=== PATIENT | female | born 1940 | race Caucasian/White ===

== ENCOUNTER → 2016-02-19 | Outpatient (CLI) | payer BC ==
[~2016-02-19] MED LIST: ANT25 PO; ASPEC81 PO; BENZ-57 PO; CITA40TA12 PO; FURO20TA PO; LISI-792 PO; LPT40 PO; MULTTAB PO; NTRSLP4 SL; ONDA4TAB10 SL; PLV75 PO; SALI0.6510; TPRSR50 PO
[2016-02-19 11:23] LABS: ALT/SGPT 30 U/L (12-78); AST/SGOT 23 U/L (15-37); CHOLESTEROL 156 mg/dl (0-200); CHOLESTEROL/HDL RATIO 2.9; HDL CHOLESTEROL 53 mg/dl; TRIGLYCERIDES 111 mg/dl (0-150); VERY LOW DENSITY LIPOPROT CALC 22 mg/dl
== END | disposition home or self-care (01) ==
LOC: C.LAB1850 09:53
PROVIDERS: ATTEND Internal Medicine
DX: I25.10 Atherosclerotic heart disease of native coronary artery without angina pectoris (principal)

== ENCOUNTER → 2016-03-02 | Outpatient (CLI) | payer BC | END | disposition home or self-care (01) | LOC: C.LAB1850 09:22 | PROVIDERS: ATTEND Internal Medicine | DX: Z00.00 Encounter for general adult medical examination without abnormal findings (principal); E78.5 Hyperlipidemia, unspecified ==

== ENCOUNTER 2016-03-13 03:37 | Emergency (ER) | payer BC ==
[~2016-03-13] VITALS: Ht 149.9 cm; Wt 72.7 kg
[~2016-03-13 03:37] MED LIST changes: -ANT25 PO; -BENZ-57 PO; -FURO20TA PO; -ONDA4TAB10 SL
[2016-03-13 03:42] VITALS: TEMP 36.6; Ht 149.9 cm; Wt 72.7 kg
[2016-03-13] MEDS ORDERED: MECLIZINE HCL 25 MG TAB PO STA (03:52)
[2016-03-13] MEDS ORDERED: SODIUM CHLORIDE 0.9% 500ML 500 ML IV STA (03:52)
[2016-03-13] MEDS ORDERED: LORAZEPAM 2 MG/ML 1 ML VIAL IV STA ×2 (03:52→04:54)
[2016-03-13 04:18] LABS: BASO % 0.4 %; BASO ABS # 0.03 K/uL (0-0.2); COMPLETE YES; HEMATOCRIT 38.9 % (37-47); IG% 0.5 %; LYMPH % 36.7 %; LYMPH ABS # 3.07 K/uL (1.2-3.4); MEAN CELL VOLUME 95.3 fL (80-100); MEAN CORPUSCULAR HEMOGLOBIN 32.4 pg (25-34); MEAN CORPUSCULAR HGB CONC 33.9 g/dl (32-36); MEAN PLATELET VOLUME 9.8 fL (7.4-10.4); MONO % 5.7 %; NEUT % 54.7 %; PLATELET COUNT 251 K/uL (130-400); RED BLOOD COUNT 4.08 M/uL (4.2-5.4); WHITE BLOOD COUNT 8.37 K/uL (4.8-10.8)
[2016-03-13] MEDS ORDERED: ONDANSETRON INJ 2 MG/ML 2 ML VIAL IV STA (04:20)
[2016-03-13 04:41] LABS: BLOOD UREA NITROGEN 26 mg/dl (7-18); BUN/CREATININE RATIO 21.4 (10-20); CALCIUM 9.8 mg/dl (8.5-10.1); CARBON DIOXIDE 25 mmol/L (21-32); CHLORIDE 106 mmol/L (98-107); GLUCOSE 120 mg/dl (70-99); SODIUM 141 mmol/L (136-145)
[2016-03-13] MEDS ORDERED: BENZ-57 PO (05:59)
[2016-03-13] MEDS ORDERED: FURO20TA PO (06:00)
[2016-03-13] MEDS ORDERED: ONDA4TAB10 SL (06:34)
[2016-03-13] MEDS ORDERED: ANT25 PO (06:34)
--- NOTE | 2016-03-13 06:34 | EMERGENCY ROOM VISIT NOTE ---
History Report prepared by Caro: Shraddha Benz Under the Supervision of: Dr. Yeison Perkins M.D. First contact with patient: 03:45 Chief Complaint: DIZZY Stated Complaint: DIZZY,NAUSEOUS Nursing Triage Summary: pt states she woke around 0300 and was really dizzy and very nauseated, states she has had vertigo before History of Present Illness The patient is a 75 year old female who presents to the Emergency Room via family with complaints of an episode of dizziness that started 50 minutes ago. Per patient, she woke up to go to the bathroom. On her way to the bathroom, the patient started to feel as if the room was spinning. She then became nauseated and vomited. The patient notes that she has a history of vertigo. The patient denies headaches, weakness in her arms or legs. The patient is on blood thinners. She is concerned that this episode of dizziness may be due to her cardiac history. The patient has a history of heart attack and has a stent in place. Source of History: patient Onset: 50 minutes ago Position: other (global) Quality: other (dizziness ) Timing: other (episode ) Associated Symptoms: + nausea, + vomiting, No headache, No weakness Review of Systems See HPI for pertinent positives & negatives. A total of 10 systems reviewed and were otherwise negative. Past Medical & Surgical Medical Problems: (1) Coronary artery disease (2) HTN (hypertension) Family History Blood clots Cancer Diabetes mellitus Hypertension Social History Smoking Status: Never Smoker Alcohol Use: none Drug Use: none Marital Status: Occupation Status: retired Current/Historical Medications Scheduled Aspirin (Aspirin EC Low Dose), 81 MG PO QAM Citalopram Hydrobromide (Celexa), 40 MG PO DAILY Clopidogrel Bisulfate (Clopidogrel), 75 MG PO QAM Lisinopril (Zestril), 20 MG PO DAILY Metoprolol Succinate (Metoprolol Succinate ER), 50 MG PO QAM Multivitamins/Minerals (Mvi With Minerals), 1 TABLET PO DAILY Ondasetron Odt (Zofran Odt), 4 MG SL Q6H Scheduled PRN Benzonatate (Tessalon Perles), 200 MG PO TID PRN for Cough Furosemide (Lasix), 20 MG PO DAILY PRN for SWELLING Meclizine HCl (Meclizine HCl), 1 TAB PO TID PRN for Dizziness or Vertigo Nitroglycerin (Nitrostat), 0.4 MG SL UD PRN for Chest Pain Saline (Goldstream Nasal Fenton), 2 SPRAYS NA Q1H PRN for nasal irritation Allergies Coded Allergies: Diazepam (Verified Allergy, Intermediate, rash, 03/13/16) Lorazepam (Verified Allergy, Intermediate, tongue swelling, 03/13/16) Red Dye (Verified Allergy, Intermediate, rash, 03/13/16) Sulfa Antibiotics (Verified Allergy, Intermediate, rash, 03/13/16) Bacitracin (Verified Allergy, Unknown, unkn, 03/13/16) Neomycin (Verified Allergy, Unknown, unkn, 03/13/16) Polymyxin B (Verified Allergy, Unknown, unkn, 03/13/16) Physical Exam Vital Signs Date Time Temp Pulse Resp B/P Pulse Ox O2 Delivery O2 Flow Rate FiO2 03/13/16 06:56 63 16 106/72 95 03/13/16 05:35 66 14 117/63 96 Room Air 03/13/16 04:14 67 03/13/16 03:42 36.6 75 18 163/76 99 Room Air Physical Exam GENERAL: Patient is in moderate distress, nauseous appearing and dry heaving. HEENT: No acute trauma, normocephalic atraumatic, mucous membranes moist, no nasal congestion, no scleral icterus. She has horizontal nystagmus. NECK: No stridor, no adenopathy, no meningismus, trachea is midline. LUNGS: No dyspnea. Clear to auscultation and equal bilaterally. No wheeze, no rhonchi. HEART: Regular rate and rhythm. No murmurs, rubs, gallops appreciated. ABDOMEN: Soft, nontender, bowel sounds positive, no masses appreciated, no peritonitis. BACK: No midline tenderness, no CVA tenderness EXTREMITIES: Normal motion all extremities, no cyanosis, no edema. NEUROLOGIC: Alert and oriented, no acute motor or sensory deficits, no focal weakness, cranial nerves grossly intact. SKIN: No rash, no jaundice, no diaphoresis. Medical Decision & Procedures Laboratory Results 03/13/16 04:05 Red Blood Count 4.08, Mean Corpuscular Volume 95.3, Mean Corpuscular Hemoglobin 32.4, Mean Corpuscular Hemoglobin Concent 33.9, Mean Platelet Volume 9.8, Neutrophils (%) (Auto) 54.7, Lymphocytes (%) (Auto) 36.7, Monocytes (%) (Auto) 5.7, Eosinophils (%) (Auto) 2.0, Basophils (%) (Auto) 0.4, Neutrophils # (Auto) 4.58, Lymphocytes # (Auto) 3.07, Monocytes # (Auto) 0.48, Eosinophils # (Auto) 0.17, Basophils # (Auto) 0.03 03/13/16 04:05 Test 03/13/16 04:05 White Blood Count 8.37 K/uL (4.8-10.8) Red Blood Count 4.08 M/uL (4.2-5.4) Hemoglobin 13.2 g/dL (12.0-16.0) Hematocrit 38.9 % (37-47) Mean Corpuscular Volume 95.3 fL (80-100) Mean Corpuscular Hemoglobin 32.4 pg (25-34) Mean Corpuscular Hemoglobin Concent 33.9 g/dl (32-36) Platelet Count 251 K/uL (130-400) Mean Platelet Volume 9.8 fL (7.4-10.4) Neutrophils (%) (Auto) 54.7 % Lymphocytes (%) (Auto) 36.7 % Monocytes (%) (Auto) 5.7 % Eosinophils (%) (Auto) 2.0 % Basophils (%) (Auto) 0.4 % Neutrophils # (Auto) 4.58 K/uL (1.4-6.5) Lymphocytes # (Auto) 3.07 K/uL (1.2-3.4) Monocytes # (Auto) 0.48 K/uL (0.11-0.59) Eosinophils # (Auto) 0.17 K/uL (0-0.5) Basophils # (Auto) 0.03 K/uL (0-0.2) RDW Standard Deviation 45.3 fL (36.4-46.3) RDW Coefficient of Variation 13.0 % (11.5-14.5) Immature Granulocyte % (Auto) 0.5 % Immature Granulocyte # (Auto) 0.04 K/uL (0.00-0.02) Anion Gap 10.0 mmol/L (3-11) Est Creatinine Clear Calc Drug Dose 35.2 ml/min Estimated GFR () 51.2 Estimated GFR (Non- 44.2 BUN/Creatinine Ratio 21.4 (10-20) Calcium Level 9.8 mg/dl (8.5-10.1) Troponin I < 0.015 ng/ml (0-0.045) Laboratory results as reviewed by me. Medications Administered Medications (Trade) Dose Ordered Sig/Laith Route Start Time Stop Time Status Last Admin Dose Admin Lorazepam 0.5 mg 0.5 mg NOW STAT IV 03/13/16 03:52 03/13/16 03:53 DC 03/13/16 04:05 0.5 MG Sodium Chloride (Nss 500ml) 500 ml @ 999 mls/hr Q31M STAT IV 03/13/16 03:52 03/13/16 04:22 DC 03/13/16 04:05 999 MLS/HR Meclizine HCl (Antivert Tab) 25 mg NOW STAT PO 03/13/16 03:52 03/13/16 03:53 DC 03/13/16 04:05 25 MG Ondansetron HCl (Zofran Inj) 4 mg NOW STAT IV 03/13/16 04:20 03/13/16 04:21 DC 03/13/16 04:33 4 MG Lorazepam (Ativan Inj) 0.5 mg NOW STAT IV 03/13/16 04:54 03/13/16 04:55 DC 03/13/16 04:54 0.5 MG ECG Indication: other (dizziness) Rate (beats per minute): 70 Rhythm: normal sinus Findings: no acute ischemic change, no ectopy ED Course 0350: The patient was evaluated in room B3. A complete history and physical exam was performed. 0352: Antivert Tab 25 mg PO, Sodium Chloride 500 ml @ 999 mls/hr IV, Ativan 0.5 mg IV 0415: I reevaluated the patient; her vertigo is gone. She states she is still nauseous. 0420: Zofran 4 mg IV 0453: I reevaluated the patient; she states that she feels much better, however she would like some Ativan as she still feels somewhat anxious. 0454: Ativan 0.5 mg IV 0628: Reevaluated the patient; she feels much better. Discussed results and discharge instructions: She verbalized understanding and agreement. The patient is ready for discharge. 0645: Zofran 4 mg 1 homepack PO, Antivert 25 mg 1 homepack PO Medical Decision Differential: Gastroenteritis, Food Borne, Esophageal Perforation, , Electrolyte Abnormality, Dehydration, Intraabdominal Infection, UTI/ Pyelonephritis, Bowel Obstruction, Biliary Pathology, amongst other pathology entertained. Pleasant 75 yr old female with nausea/vomiting illness arrives with acute vertigo. She has long history of vertigo and this is similar. She has no neuro deficits nor headache and with horizontal nystagmus, her known vertiginous history, and aversion to MRI, seems that doing stroke rule out is not indicated at this time. She furthermore is feeling vastly improved with above. Given small dose ativan initially as possible allergy but she did fine with it and thus given second .5 mg. Feeling well, received fluids and in no distress. Labs unremarkable, EKG unremarkable, and patient breathing comfortable. Abdomen is soft nontender and nonsurgical. She wishes to go home and see how she does there. Aware that they can return at any time if worsening or other concerns. Impression Primary Impression: Vertigo Additional Impression: Nausea & vomiting Scribe Attestation The scribe's documentation has been prepared under my direction and personally reviewed by me in its entirety. I confirm that the note above accurately reflects all work, treatment, procedures, and medical decision making performed by me. Departure Information Dispostion Home / Self-Care Prescriptions Meclizine HCl (Meclizine HCl) 25 Mg Tab 1 TAB PO TID Y for Dizziness or Vertigo, #20 TAB Prov: Yeison Perkins M.D. 03/13/16 Ondasetron Odt (ZOFRAN ODT) 4 Mg Tab 4 MG SL Q6H for Nausea, #20 TAB Prov: Yeison Perkins M.D. 03/13/16 Referrals Osman Hendrix M.D. (PCP) Patient Instructions ED Vertigo Unspecified, My [facility] Health Problem Qualifiers Additional Impression: Nausea & vomiting Vomiting type: unspecified Vomiting Intractability: non-intractable Qualified Codes: R11.2 - Nausea with vomiting, unspecified
[2016-03-13] MEDS ORDERED: MECLIZINE HCL 25MG HOME PACK PO ONE (06:45)
[2016-03-13] MEDS ORDERED: ONDANSETRON HOME PACK 4MG OD TAB PO ONE (06:45)
[2016-03-13 06:56] VITALS: BP 106/72; PULSE 63; O2SAT 95
== END 2016-03-13 06:57 | disposition home or self-care (01) ==
LOC: C.EDB 03:38
DX: R42 Dizziness and giddiness (principal); R11.2 Nausea with vomiting, unspecified; I10 Essential (primary) hypertension; I25.10 Atherosclerotic heart disease of native coronary artery without angina pectoris; Z79.82 Long term (current) use of aspirin; Z79.899 Other long term (current) drug therapy; Z88.2 Allergy status to sulfonamides; Z88.8 Allergy status to other drugs, medicaments and biological substances; Z80.9 Family history of malignant neoplasm, unspecified; Z83.3 Family history of diabetes mellitus; Z82.49 Family history of ischemic heart disease and other diseases of the circulatory system

== ENCOUNTER → 2016-04-06 | Outpatient (CLI) | payer BC ==
[~2016-04-06] MED LIST changes: +ANT25 PO; +BENZ-57 PO; +FURO20TA PO; -LPT40 PO; +ONDA4TAB10 SL
[2016-04-06 16:42] LABS: ALT/SGPT 21 U/L (12-78); AST/SGOT 19 U/L (15-37); BLOOD UREA NITROGEN 20 mg/dl (7-18); BUN/CREATININE RATIO 22.4 (10-20); CALCIUM 9.5 mg/dl (8.5-10.1); CARBON DIOXIDE 26 mmol/L (21-32); CHLORIDE 104 mmol/L (98-107); GLUCOSE 85 mg/dl (70-99); POTASSIUM 4.7 mmol/L (3.5-5.1); SODIUM 138 mmol/L (136-145)
[2016-04-06 16:44] LABS: ALB/GLOB RATIO 1.2 (0.9-2); ALKALINE PHOSPHATASE 63 U/L (45-117)
== END | disposition home or self-care (01) ==
LOC: C.LAB1850 12:36
PROVIDERS: ATTEND Internal Medicine
DX: Z00.00 Encounter for general adult medical examination without abnormal findings (principal); E78.5 Hyperlipidemia, unspecified; I27.2 Other secondary pulmonary hypertension; M81.0 Age-related osteoporosis without current pathological fracture

== ENCOUNTER → 2017-03-03 | Outpatient (CLI) | payer BC ==
[~2017-03-03] MED LIST changes: -BENZ-57 PO; +BENZ200C59 PO; -ONDA4TAB10 SL
[2017-03-03 16:16] LABS: ALBUMIN 3.7 gm/dl (3.4-5.0); ALT/SGPT 20 U/L (12-78); AST/SGOT 19 U/L (15-37); BLOOD UREA NITROGEN 23 mg/dl (7-18); CALCIUM 9.3 mg/dl (8.5-10.1); CARBON DIOXIDE 25 mmol/L (21-32); CHOLESTEROL 148 mg/dl (0-200); CREATININE 0.86 mg/dl (0.60-1.20); GLUCOSE 83 mg/dl (70-99); POTASSIUM 4.3 mmol/L (3.5-5.1); SODIUM 138 mmol/L (136-145)
[2017-03-03 16:27] LABS: ALKALINE PHOSPHATASE 58 U/L (45-117); LDL CHOLESTEROL CALCULATED 75 mg/dl; TOTAL PROTEIN 7.4 gm/dl (6.4-8.2)
== END | disposition home or self-care (01) ==
LOC: C.LAB1850 11:25
PROVIDERS: ATTEND Physician Assistant Medical
DX: I25.10 Atherosclerotic heart disease of native coronary artery without angina pectoris (principal); E78.5 Hyperlipidemia, unspecified; E55.9 Vitamin D deficiency, unspecified

== ENCOUNTER → 2017-09-19 | Day surgery (SDC) | payer BC ==
[2017-09-06 12:19] VITALS: Ht 149.9 cm; Wt 75.0 kg
[~2017-09-19] VITALS: Ht 149.9 cm; Wt 75.0 kg
[~2017-09-19] MED LIST changes: +500ML BSS 0.3ML EPI 1:1000PF IRRIG ONE; +ACETAMINOPHEN 325 MG TAB PO PRN; +AMVISC PLUS 0.8ML SYRINGE INT OCU ONE; -ASPEC81 PO; +ASPI-320 PO; +ATROPINE SULFATE 0.1 MG/ML 5ML SYR IV PRN; +BSS FLUSH ONE; +EpHEDrine SULFATE INJ 50 MG/ML AMP IV PRN; +EpINEphrine INJ 1MG/ML AMP 1 MG/ML AMP ONE; +FENTANYL CITRATE INJ 50 MCG/1 ML 2 ML VIAL ONE; +LACTATED RINGER'S 1000ML 500 ML IV SCH; +LIDOCAINE 3.5% OPH GEL PER APPLICATION CHARGE ONE; +LIDOCAINE HCL 1% MPF 2 ML VIAL ONE; +MIDAZOLAM HCL 1 MG/ML 2ML VIAL ONE; +OCUCOAT 1 ML SOLN IO ONE; +ONDANSETRON INJ 2 MG/ML 2 ML VIAL IV PRN; +POVIDONE-IODINE OP SOLN 30 ML BTL ONE; +PROPARACAINE 0.5% OP SOLN PER DROP CHARGE OPL SCH; +TOBRAMYCIN/DEXAMETHASONE OPH OINT PER APPLN CHARGE ONE
[2017-09-19] MEDS: PHENYLEPHRINE HCL 2.5% OP SOLN PER DROP CHARGE OPL SCH ×2 (08:03→08:07)
[2017-09-19] MEDS: TROPICAMIDE 1% OP SOLN PER DROP CHARGE OPL SCH ×2 (08:03→08:08)
[2017-09-19] MEDS: CYCLOPENTOLATE HCL 1% OP SOLN PER DROP CHARGE OPL SCH ×2 (08:04→08:09)
[2017-09-19] MEDS: KETOROLAC 0.5% OP SOLN PER DROP CHARGE OPL SCH ×2 (08:05→08:10)
[2017-09-19] MEDS: GATIFLOXACIN OP SOLN PER DROP CHARGE OPL SCH ×2 (08:06→08:16)
--- NOTE | 2017-09-19 08:13 | History & Physical Bridge - SC ---
H&P Re-Evaluation Bridge Note: I have examined the patient, reviewed the History & Physical and in the interval since the performance of the History & Physical I have noted the following changes of clinical significance: Diagnosis: Left Cataract Procedure: Left Cataract Removal with Lens Implant No changes noted
--- NOTE | 2017-09-19 08:54 | [facility] Operative Report ---
Operative Report Date of Service Sep 19, 2017. Operative Report 1. PREOPERATIVE DIAGNOSIS: Cataract of the left eye. 2. POSTOPERATIVE DIAGNOSIS: Same. 3. PROCEDURE: Phacoemulsification with intraocular lens implantation of the left eye. SURGEON: Dr. Venkata Rich. ANESTHESIA: Topical Lidocaine gel, 1% Non- Preserved intracameral Lidocaine, and monitored intravenous sedation. INDICATIONS FOR THE PROCEDURE: The patient is a 76 - year-old female with a history of cataract of the left eye causing significant visual impairment. The details of the proposed procedure were explained to the patient who asked appropriate questions and following discussion of all risks, benefits and alternatives agreed to have the procedure done. 4. OPERATION AND FINDINGS: DESCRIPTION OF PROCEDURE: After informed consent was obtained, the patient was brought to the Operating Room at the [facility]. The patient was placed in a supine position and then the left eye was prepped and draped in the usual sterile fashion for intraocular surgery. A drop of topical Lidocaine gel was placed in the operative eye. A wire lid speculum was then placed in the fornices. A corneal paracentesis was then created temporally. The Non-Preserved Lidocaine was then instilled into the anterior chamber. The anterior chamber was then pressurized with viscoelastic. A 2.0 mm clear corneal incision was then created temporally. A cystotome was inserted into the anterior chamber and used to create a tear in the anterior lens capsule. This capsular tear was then used to create a small flap and the flap was dragged in a counterclockwise direction in order to create a continuous curvilinear capsulorrhexis. Hydrodissection was accomplished with balanced salt solution. Phacoemulsification of the lens nucleus was then performed in a standard [id number] technique. The phaco time was 20 seconds with an average power of 12 %. The remaining cortical material was removed using irrigation aspiration. The capsular bag was then filled with viscoelastic. A [employer]ch [employer] Lomb MI60L +21.5 diopters lens was then loaded into the injector and injected into the capsular bag. The remaining viscoelastic was removed with the irrigation aspiration handpiece. The wound was hydrated and then checked and found to be watertight. The intraocular pressure was checked and found to be adequate. The wire lid speculum was removed and the patient's face was cleaned and dried. TobraDex ointment was placed in the inferior fornix. The patient was discharged to the Recovery Room having tolerated the procedure well. There were no complications. The patient will be seen tomorrow in the office for follow-up. I attest to the content of the Intraoperative Record and any orders documented therein. Any exceptions are noted below.
--- NOTE | 2017-09-19 08:55 | Discharge Instructions-SurgCtr ---
Discharge Instructions Date of Service Sep 19, 2017. Visit Reason for Visit: Cataract Left Eye Discharge Discharge Diagnosis / Problem: cataract Discharge Goals Goal(s): Improve function Activity Recommendations Activity Limitations: per Instructions/Follow-up section Anesthesia . Post Anesthesia Instructions: If you have had General Anesthesia or IV Sedation: * Do not drive today. * Resume driving when surgeon permits. * Do not make important decisions or sign legal documents today. * Call surgeon for: 1. Temperature elevations greater than 101 degrees F. 2. Uncontrollable pain. 3. Excessive bleeding. 4. Persistent nausea and vomiting. 5. Medication intolerance (nausea, vomiting or rash). * For nausea and vomiting use only clear liquids such as: tea, soda, bouillon until nausea subsides, then gradually increase diet as tolerated. * If you have any concerns or questions, call your surgeon's office. If physician is unavailable and it is an emergency, call 911 or go to the nearest emergency room. . Diet Recommendations Home Diet: resume previous diet Procedures Procedures Performed: Left Cataract Phacoemulsification With Intraocular Lens Implant Pending Studies Studies pending at discharge: no Medical Emergencies . Who to Call and When: Medical Emergencies: If at any time you feel your situation is an emergency, please call 911 immediately. . Non-Emergent Contact Non-Emergency issues call your: Stock Letterer . . "Provider Documentation" section prepared by Venkata Rich. .
[2017-09-19 08:56] VITALS: TEMP 36.7
--- NOTE | 2017-09-19 09:08 | Anesthesia Progress Nt - [facility] ---
Anesthesia Post Op Note Date & Time Sep 19, 2017 at 09:08 Vital Signs Pain Intensity: 0 Vital Signs Past 12 Hours Date Time Temp Pulse Resp B/P (MAP) Pulse Ox O2 Delivery O2 Flow Rate FiO2 09/19/17 08:56 36.7 75 16 146/75 (98) 100 Room Air 09/19/17 07:52 36.5 20 164/64 (97) 98 Room Air Notes Mental Status: alert / awake / arousable, participated in evaluation Pt Amnestic to Procedure: Yes Nausea / Vomiting: adequately controlled Pain: adequately controlled Airway Patency, RR, SpO2: stable & adequate BP & HR: stable & adequate Hydration State: stable & adequate Anesthetic Complications: no major complications apparent
[2017-09-19 09:22] VITALS: BP 151/56; PULSE 67; O2SAT 100
== END | disposition home or self-care (01) ==
LOC: X.SURG 07:15
PROVIDERS: ATTEND Ophthalmology
DX: H26.9 Unspecified cataract (principal); I25.10 Atherosclerotic heart disease of native coronary artery without angina pectoris; I10 Essential (primary) hypertension; E78.5 Hyperlipidemia, unspecified; I42.9 Cardiomyopathy, unspecified; I27.20 Pulmonary hypertension, unspecified; Z88.2 Allergy status to sulfonamides

== ENCOUNTER 2021-06-11 15:39 | Inpatient (IN) ==
--- NOTE | 2021-06-11 15:27 | History & Physical Report ---
Date of Service June 11, 2021 Assessment & Plan (1) Septic joint of right knee joint: Plan: Patient was notified of her blood work, fluid analysis and culture results. Does appear that she does have a septic right knee joint. Would recommend urgent arthroscopic irrigation and debridement of her right knee. She is agreeable to this. Risks and complications of the procedure were explained to the patient and include but are not limited to infection, pain, bleeding, scarring, nerve and blood vessel damage, wound problems, weakness, stiffness, incomplete relief of symptoms, further need for surgery, blood clots, embolisms, heart attack, stroke and . Dr. Gr will see the patient at the hospital and obtain consent. Preoperative EKG will be done upon her arrival at the hospital. She also will need a rapid COVID-19 test. She is aware of the COVID-19 risk is currently asymptomatic of any COVID-19 symptoms. She will be admitted after her procedure for IV antibiotics and ID consultation. May need a hospitalist consult postoperatively for medical management. She understands and agrees with the plan. All questions were answered. History of Present Illness Chief Complaint: Acute right knee pain Primary Care Provider: Osman Hendrix MD Patient is a pleasant 80-year-old female who presented to our office today with complaints of increased knee pain after Euflexxa injection on Monday. She states that she felt great after the injection, had no issues. About 12 hours later she started developing increased pain in her right knee. She called in yesterday to the point where she could hardly bear weight on the right knee. She did have chills but has not had a fever. She notes trouble weightbearing. She does normally use a cane but it cannot walk long distances. She has been doing Tylenol, Aleve for pain which has helped. She also has tramadol that she takes for other things prescribed by her family physician that she has been needing to take as well. Pain was a little better last night, but worse again this morning. She has never had any history of gout or pseudogout. Denies redness or warmth, new injury, but states that her knee does feel warm and painful to the touch. I spoke to her yesterday evening. Advised her to come in for an appointment today if she continued to have pain. During today's visit we aspirated 15 cc of cloudy fluid from her right knee. This was sent for analysis, culture, gram stain and crystals. Also a CBC, ESR and CRP was obtained. Fluid appeared to be infectious and the results indicated that as well. She was advised to go directly to the hospital for an urgent arthroscopic irrigation debridement of her right knee. She agrees to proceed with surgery. Allergies Allergy/AdvReac Type Severity Reaction Status Date / Time red dye Allergy Intermediate rash Verified 04/28/21 12:58 Sulfa (Sulfonamide Allergy Intermediate rash Verified 04/28/21 12:58 Antibiotics) atorvastatin Allergy Mild muscle Verified 04/28/21 12:58 sores bacitracin Allergy Mild Rash Verified 04/28/21 12:58 Benzodiazepines Allergy Mild rash Verified 04/28/21 12:58 neomycin Allergy Mild Rash Verified 04/28/21 12:58 polymyxin B Allergy Mild Rash Verified 04/28/21 12:58 diazepam [From Valium] Allergy Unknown Unverified 04/28/21 12:58 Home Medications Medication Instructions Recorded Confirmed Type aspirin 81 mg tablet,delayed 81 mg PO QAM 08/27/18 04/28/21 History release (Aspirin Low Dose) [id number] 1 tab PO QAM 08/27/18 04/28/21 History tablet (Multivitamin 50 Plus) cholecalciferol (vitamin D3) 25 2,000 units PO QAM cap 08/28/18 04/28/21 History mcg (1,000 unit) capsule (Vitamin D3) furosemide 20 mg tablet 20 mg PO DAILY PRN #30 tab 10/04/19 04/28/21 Rx potassium chloride 10 mEq 10 meq PO DAILY PRN #30 tab 10/04/19 04/28/21 Rx tablet,extended release nitroglycerin 0.4 mg sublingual 0.4 mg SUBLINGUAL UD PRN #25 tab 10/30/20 04/28/21 Rx tablet ferrous sulfate [Iron (ferrous 1 tab PO DAILY 11/12/20 04/28/21 History sulfate)] citalopram 40 mg tablet 40 mg PO DAILY #90 tab 02/03/21 04/28/21 Rx lisinopril 20 mg tablet 20 mg PO DAILY #90 tab 02/03/21 04/28/21 Rx metoprolol succinate 50 mg 50 mg PO QAM #90 tab 02/03/21 04/28/21 Rx tablet,extended release 24 hr simvastatin 10 mg tablet 10 mg PO DAILY #90 tab 02/03/21 04/28/21 Rx Past Med/Surg History Medical History (Updated 06/11/21 @ 15:39 by Leia Richard PA-C) Anemia Atypical chest pain Contusion of rib on left side Coronary artery disease Depression Dyslipidemia GERD (gastroesophageal reflux disease) HTN (hypertension) Iron deficiency anemia Myocardial Infarction 2016 Osteoarthritis Pulmonary hypertension Surgical History (Updated 06/05/21 @ 14:48 by Marc Bridges Jr, MD, [facility]) History of bilateral breast biopsy benign History of cardiac cath 2016 with 1 stent placed @ [facility] History of colonoscopy History of phacoemulsification of cataract of both eyes with intraocular lens implantation History of root canal procedure Family History Brother Diabetes Father Alcoholism Daughter Asthma Pulmonary embolism Sister Hypothyroidism Mother Pancreatic cancer Other No family history of adverse response to anesthesia Denies family history of Ovarian cancer Prostate cancer Myocardial infarction Breast cancer Lung cancer Colorectal cancer Social History Smoking Status: Never smoker Second Hand Exposure: No; Hx Alcohol Use: Yes Alcohol type: wine Alcohol Intake Frequency: Monthly or Less Alcohol Intake Frequency Comment: social Hx Substance Use: No Preferred Language: Citizen Of [place] Communication Ability: Effective Visual Impairment: Limited Hearing Ability: Normal Perennial House Manager Required: No Beliefs That Will Affect Care: None marital status: / Current Living Situation: Alone current occupational status: retired How many Children do You have: 1 Feels Safe at Home: Yes Childhood Exposure to Second-Hand Smoke: No caffeine: Yes (occassional coffee ) Dental Care, Regularly: Yes Physical Activity Frequency: Does not Exercise Seatbelt Use: always Sunscreen Use: No Assistive Devices: Glasses Review of Systems Constitutional: As per HPI otherwise reviewed and noncontributory. Physical Exam Constitutional: well developed, well nourished and cooperative Eyes: PERRL, conjunctivae normal, anicteric sclerae ENMT: external ear and nose normal, oropharynx normal Neck: trachea midline, no thyromegaly Respiratory: normal respiratory effort, lungs clear to auscultation Cardiovascular: RRR, no murmur, no edema Gastrointestinal (Abdomen): normal bowel sounds, soft, nontender, no hepatosplenomegaly Musculoskeletal: Exam of her right knee: The knee is warm. There is no erythema or ecchymosis. Moderate effusion to the right knee. She actively is able to fully extend her knee and hold against resistance. She is able to straight leg raise independently. Mild distal edema into her right lower extremity although equal bilaterally. Distal pulses are 2+. Distal sensation is normal. No calf tenderness. No pitting edema. Full range of motion of her right hip without discomfort. She does have medial and lateral joint line tenderness of her right knee. Able to flex her right knee to about 70 degrees with discomfort. Passive range of motion does not reproduce significant pain. Stable edematous exam to her right knee. Mild ecchymosis at previous injection site. Skin: no rashes, warm and dry Neurologic: PERRL, EOMI, accommodation nl, no face palsy, no dysarthria Psychiatric: A+Ox3, euthymic affect Results & Data Results & Data ([facility]) Laboratory Results CBC, ESR and CRP done 06/11/21. ESR =50, CRP = 21.20, WBC = 13 Fluid analysis WBC = 106,000 Crystal analysis was negative for crystals.
[2021-06-11] MEDS ORDERED: ceFAZolin 2000MG 2,000 MG/15 ML SYR IV ONE (15:57)
[2021-06-11] MEDS: LACTATED RINGER'S 1,000 ML IV SCH (16:30)
[2021-06-11] MEDS ORDERED: BUPIVACAINE 0.5 % 5 MG/1 ML MPF 30ML VIAL ONE (16:37)
[2021-06-11] MEDS ORDERED: PROPOFOL IV EMULSION 10 MG/ML 20 ML VIAL IV ONE (16:58)
[2021-06-11] MEDS ORDERED: LIDOCAINE 2% 2 ML VIAL/AMP(20MG/ML) INFIL ONE (16:58)
[2021-06-11] MEDS ORDERED: fentaNYL citrate 100 MCG/2 ML VIAL ONE ×2 (16:58→17:29)
--- NOTE | 2021-06-11 17:25 | Anesthesiology Consultation ---
Date of Service June 11, 2021 Assessment & Plan Chart Review Chart Review: Acceptable Risk for Surgery and Patient NOT seen in Pre Admission Testing Consults Requested none ASA ASA2 Proposed Anesthesia Anesthesia Type: General Risk / Benefits Reviewed With: PT / POA / Parent / Guardian, Accepts Plan and Informed Consent Obtained History Surgery Operation Date: 06/11/21 15:55 Proposed Procedures p Right Knee Arthroscopy, Arthroscopic Irrigation and Debridement - Osman Gr MD s Incision and Drainage Extremity - Osman Gr MD Height/Weight Weight: 78.8 kg Allergies Allergy/AdvReac Type Severity Reaction Status Date / Time red dye Allergy Intermediate rash Verified 06/11/21 16:07 Sulfa (Sulfonamide Allergy Intermediate rash Verified 06/11/21 16:07 Antibiotics) atorvastatin Allergy Mild muscle Verified 06/11/21 16:07 sores bacitracin Allergy Mild Rash Verified 06/11/21 16:07 Benzodiazepines Allergy Mild rash Verified 06/11/21 16:07 neomycin Allergy Mild Rash Verified 06/11/21 16:07 polymyxin B Allergy Mild Rash Verified 06/11/21 16:07 diazepam [From Valium] Allergy Unknown Verified 06/11/21 16:07 Medications Home Medications Medication Instructions Recorded Confirmed Last Taken aspirin 81 mg tablet,delayed 81 mg PO QAM 08/27/18 06/11/21 06/11/21 08:30 release (Aspirin Low Dose) [id number] 1 tab PO QAM 08/27/18 06/11/21 06/11/21 08:30 tablet (Multivitamin 50 Plus) cholecalciferol (vitamin D3) 25 2,000 units PO QAM cap 08/28/18 06/11/21 06/11/21 08:30 mcg (1,000 unit) capsule (Vitamin D3) furosemide 20 mg tablet 20 mg PO DAILY PRN #30 tab 10/04/19 06/11/21 06/11/21 08:30 potassium chloride 10 mEq 10 meq PO DAILY PRN #30 tab 10/04/19 06/11/21 06/11/21 08:30 tablet,extended release nitroglycerin 0.4 mg sublingual 0.4 mg SUBLINGUAL UD PRN #25 tab 10/30/20 06/11/21 Unknown tablet ferrous sulfate [Iron (ferrous 1 tab PO DAILY 11/12/20 06/11/21 06/11/21 08:30 sulfate)] citalopram 40 mg tablet 40 mg PO DAILY #90 tab 02/03/21 06/11/21 06/11/21 08:30 lisinopril 20 mg tablet 20 mg PO DAILY #90 tab 02/03/21 06/11/21 06/11/21 08:30 metoprolol succinate 50 mg 50 mg PO QAM #90 tab 02/03/21 06/11/21 06/11/21 08:30 tablet,extended release 24 hr simvastatin 10 mg tablet 10 mg PO DAILY #90 tab 02/03/21 06/11/21 06/10/21 20:30 Active Medications Generic Name Dose Route Start Last Admin Trade Name Freq PRN Reason Stop Dose Admin Lactated Ringer's 1,000 mls @ 15 mls/hr 06/11/21 15:30 06/11/21 17:05 Lr IV 07/11/21 15:29 Infused .Q24H WALDO Infusion NPO Date Last Intake of Fluids: 06/11/21 Time Last Intake of Fluids: 08:30 Date Last Intake of Solids: 06/11/21 Time Last Intake of Solids: 08:30 Past Medical History Medical History Anemia Atypical chest pain Contusion of rib on left side Coronary artery disease Depression Dyslipidemia GERD (gastroesophageal reflux disease) HTN (hypertension) Iron deficiency anemia Myocardial Infarction 2016 Osteoarthritis Pulmonary hypertension Exercise / Class Metabolic Activity II 4-5 Yardwork/Stairs/Walk up hill Past Family History Family History Brother Diabetes Father Alcoholism Daughter Asthma Pulmonary embolism Sister Hypothyroidism Mother Pancreatic cancer Other No family history of adverse response to anesthesia Denies family history of Ovarian cancer Prostate cancer Myocardial infarction Breast cancer Lung cancer Colorectal cancer Past Surgical History Surgical History History of bilateral breast biopsy benign History of cardiac cath 2016 with 1 stent placed @ [facility] History of colonoscopy History of phacoemulsification of cataract of both eyes with intraocular lens implantation History of root canal procedure Past Anesthesia History No Hx of Anesthesia Complications and No Family Hx of Anesthesia Complications History of PONV No Hx of PONV and No Hx of Motion Sickness Social History Smoking Status: Never smoker Do You Dip or Chew Tobacco: No Hx Alcohol Use: Yes Alcohol type: wine alcohol intake frequency: a few times a month Hx Substance Use: No substance use type: does not use Physical Exam Vital Signs Last Vital Signs Temp 37.2 C 06/11/21 16:11 Pulse 81 06/11/21 16:11 Resp 19 06/11/21 16:11 BP 146/78 H 06/11/21 16:11 Pulse Ox 99 06/11/21 16:11 ENMT Mouth: no dentition abnormality Thyromental Distance: > or= 3.5 Finger Breadths Mallampati Class: II Neck normal visual inspection Respiratory normal respiratory effort Auscultation: lungs clear to auscultation bilaterally Cardiovascular Rate/Rhythm: regular rate and regular rhythm Psychiatric Orientation: alert
[2021-06-11] MEDS ORDERED: fentaNYL citrate 100 MCG/2 ML VIAL IV PRN (17:26)
[2021-06-11] MEDS ORDERED: ONDANSETRON INJ 2 MG/ML 2 ML VIAL IV PRN ×2 (17:26→19:49)
[2021-06-11] MEDS ORDERED: ATROPINE SULFATE 0.1 MG/ML 10ML SYR IV PRN (17:26)
[2021-06-11] MEDS ORDERED: ePHEDrine sulfate 50 MG/ML AMP IV PRN (17:26)
--- NOTE | 2021-06-11 18:13 | Operative Report ---
Post Operative Report Pre & Post Diagnosis Operation Date: 06/11/21 15:55 <No data on this case meets the specified criteria> Probable septic arthritis of the right knee I identified the patient and participated in the time-out.: Yes Procedure Operation Date: 06/11/21 15:55 <No data on this case meets the specified criteria> Arthroscopic irrigation and debridement Surgeon Osman Gr MD Director Regulatory Agency Leia Richard physicians food and nutrition services assistant no resident or fellow available Estimated Blood Loss 10 Findings Consistent with Post-Op Diagnosis Specimens Joint fluid culture for routine analysis Drains Hemovac x1 superior lateral portal not tied in Anesthesia Type General Complications none Disposition Accompanied Patient To Recovery: No Disposition: Recovery Room Indications Kateryna is an 80-year-old female who had a Euflexxa injection on Monday. Monday night she started to develop pain which got progressively worse the following day. She had had Euflexxa injections before without difficulty. Ther e is not been any recent injury. She reported a few episodes of chills but no fever. She was seen in the office today were she was found to have limited knee movement significant pain and warmth. The knee was aspirated and the fluid was analyzed. The white blood cell count within the fluid was 106,095% polys. Her white count sed rate and C-reactive protein were all markedly elevated consisten t with joint infection. Gram stain and culture were pending. Crystal analysis was negative. She was brought back into the hospital where she was prepped for surgery. Treatment options risks and benefits were discussed and informed consent was obtained operative intervention was recommended. She has a known history of severe osteoarthritis of her right knee. I met her in the preop holding area. Her knee was warm but not red. Range of motion was 0/5/30 with pain. Knee was diffusely tender she had a dorsalis pedis pulse 1+ 5 out of 5 ankle and toe plantarflexion dorsiflexion inversion eversion strength. She can do a straight leg raise. Description of Procedure Informed consent obtained. Patient identified. She identified the operative site as the right knee. I marked with my initials. A preoperative surgical timeout was performed and a preop dose of IV antibiotics was given. She was given Ancef preoperatively. Mechanical devices for DVT prophylaxis. Postoperatively we will put her on chemoprophylaxis. The exam demonstrated a small to moderate effusion range of motion 0/5/100 with gravity. Cruciates and collaterals grossly intact the leg was prepped and draped in usual sterile fashion. Tourniquet was applied to the right thigh. The limb was exsanguinated with gravity and the tourniquet inflated 275 mmHg. A lateral post was used for stressing the knee. At the conclusion the operation local anesthetic was injected into the portal sites. Inferolateral viewing portal superior lateral outflow portal and inferomedial working portals were established. Because of some swelling and enlargement of the knee I initially established the lateral portal to far lateral and had to readjust it x2. The knee was entered. The fluid that was evacuated was cultured. This look like cloudy fluid but no purulence. Generally there was synovitis about the knee which was thoroughly debrided in the suprapatellar pouch anterior compartment and medial lateral gutters. 9 L of sterile saline were run through the knee. The medial compartment was tight and difficult to visualize. I did run fluid through there. Due to the severe nature of the arthritis in the intercondylar notch access to the posterior medial lateral compartments is not possible through the Gillquist use. The lateral compartment demonstrated deformity of the tibial plateau consistent with prior fracture. She had irregularity of the lateral meniscus and a flap midportion which I debrided so that it did not cause any mechanical symptoms. The anterior portion of the lateral meniscus was largely absent. There was a large areas of widely diffuse grade 4 chondrosis of the patella trochlea femur and tibial plateaus consistent with markedly advanced osteoarthritis and grooving of the knee bones. Osteophytes are noted in the notch and on the margins of the knee throughout. Some small osteophytes were debrided as encountered in the front of the knee. The retropatellar fat pad was resected. After the irrigation and debridement a large Hemovac drain was inserted into the suprapatellar pouch through the superolateral portal under direct visualization. It was not tied in. The portals were closed with 3-0 nylon. A soft sterile dressing was applied Xeroform 4 x 4's ABD and a soft wrap and a full-length Armani wrap with knee immobilizer. The tourniquet was let down prior to wound closure after 30 minutes of inflation. specimens were as mentioned above counts were correct blood loss was 10 cc. At the conclusion the operation I spoke to the patient's daughter informed her my findings and postop instructions were discussed. She will be admitted to the hospital. We will get a medicine consult. She may need an ID consult. I would suspect that she will need some long-term IV antibiotics and may need a PICC line. We will start her on chemoprophylaxis. The patient and her daughter are aware that I will be out of town the remainder of the weekend and the doctor on- call will assume her care. I will communicate my plan directly with whoever that physician is. We will start on IV vancomycin postop. No complications. I attest to the content of the Intraoperative Record and any orders documented therein. Any exceptions are noted below.
--- NOTE | 2021-06-11 18:25 | Operative Report ---
Post Operative Report Pre & Post Diagnosis Operation Date: 06/11/21 15:55 Pre-Op Diagnosis: Right Knee Effusion Right Knee Osteoarthritis Post-Op Diagnosis: Right Knee Effusion Right Knee Osteoarthritis I identified the patient and participated in the time-out.: Yes Procedure Operation Date: 06/11/21 15:55 Actual Procedures p Right Knee Arthroscopy with Arthroscopic Irrigation and Debridement(Right) - Osman Gr MD Surgeon Osman Gr M.D. Human Factors Scientist Leia Richard physicians minister assistant no resident or fellow available Estimated Blood Loss 10 Findings Consistent with Post-Op Diagnosis Right knee sepsis Specimens None Intra-operative cultures x 1 Drains Hemovac x 1 Anesthesia Type General Description of Procedure Patient was taken to the operating room, placed under general anesthesia, time out performed, prepped and draped in routine sterile fashion. I was present during the entire case, please see Dr. Gr's operative report for further detail. I assisted with irrigation, debridement and closure. Patient was awakened and taken to the recovery room in stable condition. I attest to the content of the Intraoperative Record and any orders documented therein. Any exceptions are noted below.
--- NOTE | 2021-06-11 19:17 | Anesthesiology Progress Note ---
Date of Service June 11, 2021 Anesthesia Post Procedure Vital Signs Vital Signs: Temp Pulse Resp BP BP Pulse Ox 06/11/21 19:00 81 24 138/69 94 06/11/21 18:50 81 22 154/64 H 96 06/11/21 18:40 80 20 154/72 H 96 06/11/21 18:30 77 15 153/66 H 99 06/11/21 18:22 36.3 C L 75 14 147/69 H 95 06/11/21 16:11 37.2 C 81 19 146/78 H 99 Pain Intensity Right Knee: Pain Intensity: 2 Transfer of Care Handoff Completed per policy Notes Mental Status: alert / awake / arousable Patient Amnestic to Procedure: Yes Nausea / Vomiting: adequately controlled Pain: adequately controlled Airway Patency, RR, SpO2: stable & adequate BP & HR: stable & adequate Hydration State: stable & adequate Anesthetic Complications: no major complications apparent
[2021-06-11] MEDS ORDERED: ACETAMINOPHEN 500 MG TAB PO PRN (19:49)
[2021-06-11] MEDS ORDERED: NALOXONE HCL 0.4 MG/1 ML VIAL/CARP IV PRN (19:49)
[2021-06-11] MEDS ORDERED: MAGNESIUM HYDROXIDE SUSP 30 ML UDC PO PRN (19:49)
[2021-06-11] MEDS ORDERED: FUROSEMIDE 20 MG TAB PO PRN (19:49)
[2021-06-11] MEDS ORDERED: VANCOMYCIN CONSULT ACTIVE PRN (19:49)
[2021-06-11] MEDS ORDERED: NITROGLYCERIN SL 0.4 MG/TAB TAB SL PRN (19:49)
[2021-06-11] MEDS ORDERED: bisacodyL 10 MG SUPP PR PRN (19:49)
[2021-06-11] MEDS ORDERED: ALUMINUM/MAGNESIUM SUSP 30 ML UDC PO PRN (19:49)
[2021-06-11] MEDS ORDERED: METOCLOPRAMIDE HCL INJ 5 MG/ML 2 ML VIAL IV PRN (19:49)
[2021-06-11] MEDS ORDERED: POTASSIUM CHLORIDE 10 MEQ TABCR PO PRN (19:49)
[2021-06-11] MEDS ORDERED: traMADol HCL 50 MG TABLET PO PRN (19:49)
[2021-06-11] MEDS ORDERED: SODIUM CHLORIDE 0.9% 1000ML 1,000 ML IV SCH (19:49)
[2021-06-11] MEDS ORDERED: HYDROmorphone INJ 0.5 MG/0.5 ML SYR IV PRN (19:49)
[2021-06-11] MEDS: PATIENT'S HEIGHT AND/OR WEIGHT NEEDED SCH ×2 (20:35→22:16)
[2021-06-11] MEDS ORDERED: VANCOMYCIN HCL 1,750 MG in SODIUM CHLORIDE 0.9% 500 ML IV STA (20:57)
[2021-06-11] MEDS: DOCUSATE SODIUM 100 MG CAP PO SCH (21:00)
[2021-06-11 21:12] LABS: Est GFR (African American) 62.4 ml/min; Est GFR (Non-African American) 53.8 ml/min
[2021-06-11] MEDS: SENNA 8.6 MG TAB PO SCH (21:24)
[2021-06-12] MEDS ORDERED: TRANEXAMIC ACID / 0.7% NACL 1,000 MG/100 ML BAG IV SCH (00:30)
[2021-06-12] MEDS: oxyCODONE HCL IR 5 MG TAB (IMMEDIATE RELEASE) PO PRN ×3 (00:38→19:32)
--- NOTE | 2021-06-12 00:53 | Pharmacy Report ---
Pharmacy Abx/Gly Intl Consult - Date of Service June 12, 2021 - Scope Pharmacy has been consulted by Dr. Gr to manage Vancomycin approved dosing protocols. - Subjective The patient is a 80 year old F admitted on 06/11/21 18:24. - Objective Height: 4 ft 10 in Weight: 78.8 kg Vital Signs (Past 12hrs): Vital Signs Temp Pulse Pulse Resp BP BP Pulse Ox 06/11/21 22:51 72 16 131/60 96 06/11/21 21:52 36.7 C 75 16 116/65 97 06/11/21 20:38 37.5 C 85 16 165/69 H 100 06/11/21 20:22 36.8 C 79 16 125/70 98 06/11/21 19:40 36.8 C 78 16 130/62 98 06/11/21 19:20 37.1 C 78 21 125/58 L 95 06/11/21 19:10 77 18 130/46 L 95 06/11/21 19:00 81 24 138/69 94 06/11/21 18:50 81 22 154/64 H 96 06/11/21 18:40 80 20 154/72 H 96 06/11/21 18:30 77 15 153/66 H 99 06/11/21 18:22 36.3 C L 75 14 147/69 H 95 06/11/21 16:11 37.2 C 81 19 146/78 H 99 Lab Results (24hrs): Laboratory Results - last 24 hr 06/11/21 06/11/21 15:55 20:40 Creatinine 0.99 Est Cr Clr Drug Dosing Not Reportable Est GFR ( Amer) 62.4 Est GFR (Non-Af Amer) 53.8 SARS-CoV-2, RNA, NAAT NEGATIVE Micro Results: 06/11/21 17:35 Gram Stain - Pending Knee,Right Aerobic and Anaerobic Culture - Pending 06/11/21 20:23 Aerobic Blood Culture - Pending Blood Anaerobic Blood Culture - Pending 06/11/21 20:21 Aerobic Blood Culture - Pending Blood Anaerobic Blood Culture - Pending - Plan ANTIMICROBIAL THERAPY Vancomycin IV * Loading dose: 1750 mg (22 mg/kg) * Maintenance dose: 1000 mg IV (12 mg/kg) every 18 hours * AUC/BIANCA is the preferred PK/PD target for vancomycin * AUC guided dosing is effective and associated with decreased risk of nephrotoxicity compared to traditional trough targets * The above dose is predicted to achieve target AUC/BIANCA of 400-600 mg/L.hr and may be associated with a 13 % risk of nephrotoxicity * Will check a trough/random level in a few days or with any changes in renal function. Pharmacy will follow patient and adjust orders on a daily basis. Thank you for allowing us to participate in this patients care.
[2021-06-12] MEDS: PATIENT'S HEIGHT AND/OR WEIGHT NEEDED SCH (02:01)
--- NOTE | 2021-06-12 02:48 | Hospitalist Consultation ---
Date of Consultation June 12, 2021 Assessment & Plan (1) Septic joint of right knee joint: Kateryna Hill is a very pleasant 80yo female with right knee OA, HTN, HLD, CAD, iron deficiency anemia, and history of NSTEMI (s/p LAD YESNEIA) who presented to [facility] on 06/12 with a septic right knee effusion. Patient underwent right knee arthroscopy, arthroscopic irrigation, and debridement yesterday evening (06/11). Patient tolerated the procedure well without complications. The hospitalist service was consulted for postoperative medical management. Septic right knee s/p arthroscopy, arthroscopic irrigation, and debridement Patient tolerated the procedure well without complications Continue vancomycin IV Pain control plan: APAP 1000mg PO q8h scheduled Tramadol 50-100mg PO q4h prn mild pain Oxycodone 5-10mg PO q4h prn moderate pain Hydromorphone 0.25mg IV q4h prn severe pain Continue ASA 81mg qd, vitamin D 2000u PO qAM Continue LR as ordered by orthopedic team CBC, BMP in AM HTN BP intermittently elevated during this hospitalization, likely secondary to pain; currently well-controlled Continue home lisinopril, metoprolol, furosemide (continue home KCl 10mEq qd due to standing lasix use) Low sodium, heart healthy diet (low sodium as per recommendation of patient's PCP at most recent visit) HLD, CAD, history of NSTEMI s/p LAD YESENIA Continue ASA Continue simvastatin (intolerant of atorvastatin - per last cardiology note, continue simvastatin) Iron deficiency anemia Patient's home ferrous sulfate 325mg qd changed to q48h to improve absorption and reduce side-effects Depression Continue home citalopram FEN: low-sodium, heart-healthy diet Code status: full code DVT ppx: lovenox, ASA PT/OT: ordered Dispo: med/surg (2) Primary osteoarthritis of right knee: (3) Coronary artery disease: (4) Dyslipidemia: (5) HTN (hypertension): (6) History of non-ST elevation myocardial infarction (NSTEMI): (7) Presence of drug-eluting stent in anterior descending branch of left coronary artery: (8) Pulmonary hypertension: (9) Osteoporosis: (10) Mitral regurgitation: (11) Antiplatelet or antithrombotic long-term use: Supervising Physician Co-Signing Physician Notes Attending addendum: I have physically seen this patient, have supervised the medical residents activities, and agree with the H&P unless as otherwise noted. Assessment and Plan: Septic right knee/status post arthroscopic irrigation debridement- Seen postoperatively is medically stable Vancomycin IV per admitting team Pain control per admitting team CAD/hypertension/history of NSTEMI/status post LAD YESENIA/hypertension- Continue aspirin, simvastatin, lisinopril, metoprolol and furosemide with hold parameters Continue home medications and orders as noted We will follow during hospital stay History of Present Illness Attending Physician: Osman Gr MD History of Present Illness Kateryna Hill is a very pleasant 80yo female with right knee OA, HTN, HLD, CAD, pHTN, mitral regurgitation, tricuspid valve regurgitation, iron deficiency anemia, and history of NSTEMI (s/p LAD YESENIA) who presented to [facility] on 06/12 with a septic right knee effusion. Patient underwent right knee arthroscopy with arthroscopic irrigation and debridement yesterday evening (06/11). Patient tolerated the procedure well without complications. The hospitalist service was consulted for postoperative medical management. Patient was evaluated at bedside early this morning. Patient feels well, noting 5/10 right knee pain earlier in the evening, though this is currently at a 0/10 after patient was given oxycodone. Patient is in good spirits and has no other complaints. Patient denies headache, vision change, CP, SOB, abdominal pain, nausea, vomiting, diarrhea, pain in other joints, or other symptoms. Allergies Allergy/AdvReac Type Severity Reaction Status Date / Time red dye Allergy Intermediate rash Verified 06/11/21 16:07 Sulfa (Sulfonamide Allergy Intermediate rash Verified 06/11/21 16:07 Antibiotics) atorvastatin Allergy Mild muscle Verified 06/11/21 16:07 sores bacitracin Allergy Mild Rash Verified 06/11/21 16:07 Benzodiazepines Allergy Mild rash Verified 06/11/21 16:07 neomycin Allergy Mild Rash Verified 06/11/21 16:07 polymyxin B Allergy Mild Rash Verified 06/11/21 16:07 diazepam [From Valium] Allergy Unknown Verified 06/11/21 16:07 Home Medications Medication Instructions Recorded Confirmed Type aspirin 81 mg tablet,delayed 81 mg PO QAM 08/27/18 06/11/21 History release (Aspirin Low Dose) [id number]-aarwraxm-oakffa 1 tab PO QAM 07/15/19 04/29/22 History tablet (Multivitamin 50 Plus) cholecalciferol (vitamin D3) 25 2,000 units PO QAM cap 08/28/18 06/11/21 History mcg (1,000 unit) capsule (Vitamin D3) furosemide 20 mg tablet 20 mg PO DAILY PRN #30 tab 10/04/19 06/11/21 Rx potassium chloride 10 mEq 10 meq PO DAILY PRN #30 tab 10/04/19 06/11/21 Rx tablet,extended release nitroglycerin 0.4 mg sublingual 0.4 mg SUBLINGUAL UD PRN #25 tab 10/30/20 06/11/21 Rx tablet ferrous sulfate [Iron (ferrous 1 tab PO DAILY 11/12/20 06/11/21 History sulfate)] citalopram 40 mg tablet 40 mg PO DAILY #90 tab 02/03/21 06/11/21 Rx lisinopril 20 mg tablet 20 mg PO DAILY #90 tab 02/03/21 06/11/21 Rx metoprolol succinate 50 mg 50 mg PO QAM #90 tab 02/03/21 06/11/21 Rx tablet,extended release 24 hr simvastatin 10 mg tablet 10 mg PO DAILY #90 tab 02/03/21 06/11/21 Rx Patient History Medical History (Updated 06/12/21 @ 11:57 by Diana Joyner PA-C) Anemia Atypical chest pain Contusion of rib on left side Coronary artery disease Depression Dyslipidemia GERD (gastroesophageal reflux disease) HTN (hypertension) Iron deficiency anemia Myocardial Infarction 2015 Osteoarthritis Pulmonary hypertension Surgical History History of bilateral breast biopsy benign History of cardiac cath 2016 with 1 stent placed @ [facility] History of colonoscopy History of phacoemulsification of cataract of both eyes with intraocular lens implantation History of root canal procedure Family History Brother Diabetes Father Alcoholism Daughter Asthma Pulmonary embolism Sister Hypothyroidism Mother Pancreatic cancer Other No family history of adverse response to anesthesia Denies family history of Ovarian cancer Prostate cancer Myocardial infarction Breast cancer Lung cancer Colorectal cancer Social History Smoking Status: Never smoker Second Hand Exposure: No; Do You Dip or Chew Tobacco: No; Tobacco Cessation Education Requested by Patient: No Hx Alcohol Use: Yes Alcohol type: wine Alcohol Intake Frequency: Monthly or Less Alcohol Intake Frequency Comment: social Hx Substance Use: No Preferred Language: Ukrainian Communication Ability: Effective Visual Impairment: Limited Hearing Ability: Normal Battery Recharger Required: No Beliefs That Will Affect Care: None marital status: / Current Living Situation: Alone current occupational status: retired How many Children do You have: 1 Other Information That Helps Us Care for You: No Feels Safe at Home: Yes Safety Concerns: Feels Safe At This Time Childhood Exposure to Second-Hand Smoke: No caffeine: Yes (occassional coffee ) Dental Care, Regularly: Yes Physical Activity Frequency: Does not Exercise Seatbelt Use: always Sunscreen Use: No Assistive Devices: Cane and Walker Review of Systems Review of Systems: See HPI Physical Exam Physical Exam: Constitutional: well-appearing, no acute distress, watching TV in hospital bed HEENT: MMM CV: regular rhythm, no murmur appreciated, 1+ LE edema bilaterally Resp: CTABL, no wheezes/rales/rhonchi appreciated, no increased work of breathing GI: soft, nondistended, nontender, BS normoactive MSK: right knee immobilizer in place, right toes well-perfused, right dorsal pedal pulse strong Neuro: alert, oriented, no focal neurologic deficit appreciated Results & Data Results & Data ([facility]) Vital Signs (Past 12 Hours) Vital Signs Temp Pulse Pulse Resp BP BP Pulse Ox 06/12/21 02:00 36.6 C 81 16 119/57 L 93 06/11/21 22:51 72 16 131/60 96 06/11/21 21:52 36.7 C 75 16 116/65 97 06/11/21 20:38 37.5 C 85 16 165/69 H 100 06/11/21 20:22 36.8 C 79 16 125/70 98 06/11/21 19:40 36.8 C 78 16 130/62 98 06/11/21 19:20 37.1 C 78 21 125/58 L 95 06/11/21 19:10 77 18 130/46 L 95 06/11/21 19:00 81 24 138/69 94 06/11/21 18:50 81 22 154/64 H 96 06/11/21 18:40 80 20 154/72 H 96 06/11/21 18:30 77 15 153/66 H 99 06/11/21 18:22 36.3 C L 75 14 147/69 H 95 06/11/21 16:11 37.2 C 81 19 146/78 H 99 Resident Activity Tracking Resident Involvement: Resident Care Provided Care Provided: Adult Hospital Medicine (1) Coronary artery disease Associated angina: without angina Coronary Disease-Associated Artery/Lesion type: [place] artery [place] vs. transplanted heart: [place] heart Qualified Code(s): I25.10 - Atherosclerotic heart disease of [place] coronary artery without angina pectoris (2) HTN (hypertension) Hypertension type: essential hypertension Qualified Code(s): I10 - Essential (primary) hypertension
[2021-06-12] MEDS: ACETAMINOPHEN 500 MG TAB PO SCH ×3 (05:11→21:16)
[2021-06-12 06:06] LABS: Basophils # (auto) 0.01 K/uL (0-0.2); Basophils % (auto) 0.1 %; Eosinophils # (auto) 0.08 K/uL (0-0.5); Eosinophils % (auto) 0.9 %; Hemoglobin 9.1 g/dL (12.0-16.0); Immature Granulocytes # (auto) 0.03 K/uL (0.00-0.02); Immature Granulocytes % (auto) 0.3 %; Lymphocytes % (auto) 15.4 %; Mean Corpuscular Hemoglobin 31.7 pg (25-34); Mean Corpuscular Hgb Conc 32.5 g/dL (32-36); Mean Corpuscular Volume 97.6 fL (80-100); Mean Platelet Volume 9.8 fL (7.4-10.4); Monocytes # (auto) 0.96 K/uL (0.11-0.59); Monocytes % (auto) 10.5 %; Neutrophils # (auto) 6.62 K/uL (1.4-6.5); Neutrophils % (auto) 72.8 %; Platelet Count 238 K/uL (130-400); RDW Coefficient of Variation 13.7 % (11.5-14.5); RDW Standard Deviation 48.9 fL (36.4-46.3); Red Blood Count 2.87 M/uL (4.2-5.4)
[2021-06-12 06:30] LABS: BUN Creatinine Ratio 24.2 (10-20); Calcium 8.6 mg/dl (8.5-10.1); Creatinine Clr Calc Pharmacy 43.6 ml/min; Est GFR (African American) 69.1 ml/min; Est GFR (Non-African American) 59.6 ml/min; Potassium 4.2 mmol/L (3.5-5.1)
[2021-06-12] MEDS: lisinopril 20 MG TAB PO SCH (08:20)
[2021-06-12] MEDS: CHOLECALCIFEROL 1,000 UNITS 25 MCG TAB PO SCH (08:21)
[2021-06-12] MEDS: DOCUSATE SODIUM 100 MG CAP PO SCH ×2 (08:21→21:16)
[2021-06-12] MEDS: ENOXAPARIN INJ 40 MG/0.4 ML SYR SQ SCH (08:21)
[2021-06-12] MEDS: SIMVASTATIN 10 MG TAB PO SCH (08:21)
[2021-06-12] MEDS: METOPROLOL SUCC 50MG EXT REL TAB PO SCH (08:21)
[2021-06-12] MEDS: CITALOPRAM 40 MG TAB PO SCH (08:21)
[2021-06-12] MEDS: CEROVITE ADV FORMULA TAB PO SCH (08:21)
[2021-06-12] MEDS: ASPIRIN 81 MG ECTAB PO SCH (08:21)
[2021-06-12] MEDS ORDERED: FERROUS SULFATE 325 MG TAB PO SCH (09:00)
--- NOTE | 2021-06-12 09:12 | Orthopedic Progress Note ---
Date of Service June 12, 2021 Assessment & Plan (1) Septic joint of right knee joint: She is status post arthroscopic irrigation and debridement of the right knee postop day #1. She is doing fairly well. She is on vancomycin. The hospitalist has been consulted. She can be weightbearing as tolerated. She is on aspirin for DVT prophylaxis and has pain medications ordered. We are awaiting culture results and she will likely require a PICC line. She understands she will likely be in the hospital for about 3 days. Urmila Avendaño was seen and examined at bedside this morning. Overall she is doing okay. She says she still has some soreness in her right knee. She was up and ambulating to the bathroom last night but she said she moved slowly. She was able to get some sleep. Otherwise, she has no complaints. Review of Systems All systems reviewed & are unremarkable except as noted in HPI & below. Physical Exam On physical examination of the right knee, there is a large compressive dressing in place. There is a knee immobilizer in place. She has a Hemovac drain that is holding suction. Results & Data Results & Data Laboratory Results . Diagnostic Findings . PG Care Time/CCT Total # of Minutes Spent Total Time Spent with Patient: Total time spent is greater than 50% in coordination of care (as documented) at patient's floor/unit and/or counseling patient: Coding Level of Care Code 26436 Post Operative Follow-Up Diagnoses Septic joint of right knee joint M00.9
[2021-06-12] MEDS: VANCOMYCIN HCL 1,000 MG in SODIUM CHLORIDE 0.9% 250 ML IV SCH (10:42)
--- NOTE | 2021-06-12 12:01 | Hospitalist Progress Note ---
Date of Service June 12, 2021 Assessment & Plan (1) Septic joint of right knee joint: Plan: S/p arthroscopy, arthroscopic irrigation and debridement on 06/11, POD#1. Continue Vancomycin IV; culture results pending, will likely require PICC line. APAP 1000 mg q8hr scheduled; Tramadol 50 to 100 mg q4hr prn mild pain, Oxycodone 5-10 mg q4hr prn moderate pain, Dilaudid 0.25 mg IV q4hr prn severe pain. Continue ASA 81mg qd, vitamin D 2000u PO qAM Monitor CBC and BMP daily. (2) Primary osteoarthritis of right knee: Plan: - Chronic. (3) Coronary artery disease: Plan: - Continue ASA & Simvastatin (intolerant of Atorvastatin) (4) Dyslipidemia: Plan: - As noted above. (5) HTN (hypertension): Plan: - Continue home ACEI, BB, Lasix. - Low sodium, heart healthy diet. (6) History of non-ST elevation myocardial infarction (NSTEMI): Plan: - On ASA and statin. (7) Pulmonary hypertension: Plan: - Chronic. (8) Osteoporosis: Plan: - Managed by PCP. (9) Postoperative anemia: Plan: - Hgb decreasing, related to operative losses. - Hgb 9.1, prev 11.4. - On Ferrous sulfate 325 mg q8hr. (10) Mitral regurgitation: Plan: - Chronic, follows with cardiology. DVT ppx: Lovenox 40 mg subQ daily. Admission and Anticipated Discharge Date Admission Date: June 11, 2021 Supervising Physician Co-Signing Physician Notes Attending Attestation - Chart reviewed, care plan d/w CLAIRE Garber. I agree with the [place] components of her documentation. Patricio Duarte MD Subjective Ms. Hill is an 80 y/o female who presented for right knee arthroscopy, I&D completed on 06/11/21- she is POD#1. She has not had a BM yet post operatively but is passing gas. C/o right knee pain, does have pain in joint during exam. Remains on Vancomcyin IV. Review of Systems Review of Systems: Constitutional: Negative for weight loss, night sweats, or fever Cardiovascular: Negative for anginal type chest pain, palpitations, dizziness, diaphoresis Respiratory: Negative for new shortness of breath,hemoptysis, or purulent cough Gastrointestinal: +Constipation; Negative for diarrhea, nausea, vomiting Integumentary (skin): Negative for rash or jaundice discoloration Lymphatic/Hematologic: Negative for petechiae, bleeding or new adenopathy Musculoskeletal: +Right knee pain Physical Exam Physical Exam: Constitutional: Vitals are stable Respiratory: Lung sounds were generally clear bilaterally. Cardiovascular: Heart was RRR without significant murmur, gallops or rubs. Gastrointestinal: No palpable hepatic or splenomegaly. The abdomen was soft with normal bowel sounds. Lymphatic system: There was no palpable peripheral lymphadenopathy. Musculoskeletal System: The musculoskeletal system seemed concordant with age. Skin: The skin was negative for jaundice. Extremities: Negative for edema or erythema Results & Data Results & Data ([facility]) Vital Signs (Past 12 Hours) Vital Signs Temp Pulse Resp BP Pulse Ox 06/12/21 07:42 36.6 C 68 18 118/74 97 06/12/21 02:00 36.6 C 81 16 119/57 L 93 Laboratory Results 06/12/21 06/12/21 06/11/21 Range/Units 05:50 05:50 20:40 WBC 9.10 (4.8-10.8) K/uL RBC 2.87 L (4.2-5.4) M/uL Hgb 9.1 L (12.0-16.0) g/dL Hct 28.0 L (37-47) % MCV 97.6 (80-100) fL MCH 31.7 (25-34) pg MCHC 32.5 (32-36) g/dL RDW Std Deviation 48.9 H (36.4-46.3) fL RDW Coeff of [place] 13.7 (11.5-14.5) % Plt Count 238 (130-400) K/uL MPV 9.8 (7.4-10.4) fL Immature Gran % (Auto) 0.3 % Neut % (Auto) 72.8 % Lymph % (Auto) 15.4 % [place] % (Auto) 10.5 % Eos % (Auto) 0.9 % Baso % (Auto) 0.1 % Neut # (Auto) 6.62 H (1.4-6.5) K/uL Lymph # (Auto) 1.40 (1.2-3.4) K/uL [place] # (Auto) 0.96 H (0.11-0.59) K/uL Eos # (Auto) 0.08 (0-0.5) K/uL Baso # (Auto) 0.01 (0-0.2) K/uL Immature Gran # (Auto) 0.03 H (0.00-0.02) K/uL Sodium 136 (136-145) mmol/L Potassium 4.2 (3.5-5.1) mmol/L Chloride 109 H (98-107) mmol/L Carbon Dioxide 22 (21-32) mmol/L Anion Gap 5 (3-11) BUN 22 (6-23) mg/dl Creatinine 0.91 0.99 (0.6-1.2) mg/dl Est Cr Clr Drug Dosing 43.6 Not Reportable Est GFR ( Amer) 69.1 62.4 ml/min Est GFR (Non-Af Amer) 59.6 53.8 ml/min BUN/Creatinine Ratio 24.2 H (10-20) Glucose 94 (70-99(Fasting)) mg/dl Calcium 8.6 (8.5-10.1) mg/dl SARS-CoV-2, RNA, NAAT (NEGATIVE) 06/11/21 Range/Units 15:55 WBC (4.8-10.8) K/uL RBC (4.2-5.4) M/uL Hgb (12.0-16.0) g/dL Hct (37-47) % MCV (80-100) fL MCH (25-34) pg MCHC (32-36) g/dL RDW Std Deviation (36.4-46.3) fL RDW Coeff of [place] (11.5-14.5) % Plt Count (130-400) K/uL MPV (7.4-10.4) fL Immature Gran % (Auto) % Neut % (Auto) % Lymph % (Auto) % [place] % (Auto) % Eos % (Auto) % Baso % (Auto) % Neut # (Auto) (1.4-6.5) K/uL Lymph # (Auto) (1.2-3.4) K/uL [place] # (Auto) (0.11-0.59) K/uL Eos # (Auto) (0-0.5) K/uL Baso # (Auto) (0-0.2) K/uL Immature Gran # (Auto) (0.00-0.02) K/uL Sodium (136-145) mmol/L Potassium (3.5-5.1) mmol/L Chloride (98-107) mmol/L Carbon Dioxide (21-32) mmol/L Anion Gap (3-11) BUN (6-23) mg/dl Creatinine (0.6-1.2) mg/dl Est Cr Clr Drug Dosing Est GFR ( Amer) ml/min Est GFR (Non-Af Amer) ml/min BUN/Creatinine Ratio (10-20) Glucose (70-99(Fasting)) mg/dl Calcium (8.5-10.1) mg/dl SARS-CoV-2, RNA, NAAT NEGATIVE (NEGATIVE) PG Care Time/CCT Total # of Minutes Spent Total Time Spent with Patient: Total time spent is greater than 50% in coordination of care (as documented) at patient's floor/unit and/or counseling patient: [place] [address] Subseq Hosp Care Lvl 2 Patient Type Established Diagnoses Septic joint of right knee joint M00.9 Primary osteoarthritis of right knee M17.11 Coronary artery disease I25.10 Associated angina: without angina Coronary Disease-Associated Artery/Lesion type: [place] artery [place] vs. transplanted heart: [place] heart Dyslipidemia E78.5 HTN (hypertension) I10 Hypertension type: essential hypertension History of non-ST elevation myocardial infarction (NSTEMI) I25.2 Pulmonary hypertension I27.20 Osteoporosis M81.0 Mitral regurgitation I34.0 Postoperative anemia D64.9 (1) Coronary artery disease Associated angina: without angina Coronary Disease-Associated Artery/Lesion type: [place] artery [place] vs. transplanted heart: [place] heart Qualified Code(s): I25.10 - Atherosclerotic heart disease of [place] coronary artery without angina pectoris (2) HTN (hypertension) Hypertension type: essential hypertension Qualified Code(s): I10 - Essential (primary) hypertension
[2021-06-12] MEDS: LACTATED RINGER'S 1,000 ML IV SCH (14:31)
[2021-06-12] MEDS: SENNA 8.6 MG TAB PO SCH (21:16)
[2021-06-13] MEDS: VANCOMYCIN HCL 1,000 MG in SODIUM CHLORIDE 0.9% 250 ML IV SCH ×2 (04:44→22:23)
--- NOTE | 2021-06-13 05:12 | Billing Data ---
Date of Service June 13, 2021 Coding Level of Care Code 60873 Inpt Consult Level 3
[2021-06-13] MEDS: ACETAMINOPHEN 500 MG TAB PO SCH ×3 (06:19→21:42)
[2021-06-13] MEDS: oxyCODONE HCL IR 5 MG TAB (IMMEDIATE RELEASE) PO PRN ×2 (07:47→14:36)
[2021-06-13] MEDS: CHOLECALCIFEROL 1,000 UNITS 25 MCG TAB PO SCH (07:48)
[2021-06-13] MEDS: FERROUS SULFATE 325 MG TAB PO SCH (07:49)
[2021-06-13] MEDS: DOCUSATE SODIUM 100 MG CAP PO SCH ×2 (07:49→21:41)
[2021-06-13] MEDS: SIMVASTATIN 10 MG TAB PO SCH (07:49)
[2021-06-13] MEDS: lisinopril 20 MG TAB PO SCH (07:50)
[2021-06-13] MEDS: ENOXAPARIN INJ 40 MG/0.4 ML SYR SQ SCH (07:50)
[2021-06-13] MEDS: CEROVITE ADV FORMULA TAB PO SCH (07:50)
[2021-06-13] MEDS: CITALOPRAM 40 MG TAB PO SCH (07:51)
[2021-06-13] MEDS: METOPROLOL SUCC 50MG EXT REL TAB PO SCH (07:51)
[2021-06-13] MEDS: ASPIRIN 81 MG ECTAB PO SCH (07:51)
[2021-06-13 09:12] LABS: Hematocrit (blood only) 29.5 % (37-47); Hemoglobin 9.6 g/dL (12.0-16.0); Mean Corpuscular Hemoglobin 31.8 pg (25-34); Mean Corpuscular Hgb Conc 32.5 g/dL (32-36); Mean Corpuscular Volume 97.7 fL (80-100); Mean Platelet Volume 9.6 fL (7.4-10.4); Platelet Count 317 K/uL (130-400); RDW Coefficient of Variation 13.6 % (11.5-14.5); RDW Standard Deviation 48.7 fL (36.4-46.3); Red Blood Count 3.02 M/uL (4.2-5.4); White Blood Count 10.86 K/uL (4.8-10.8)
[2021-06-13 09:32] LABS: BUN Creatinine Ratio 25.5 (10-20); Calcium 9.1 mg/dl (8.5-10.1); Creatinine Clr Calc Pharmacy 40.5 ml/min; Est GFR (African American) 63.1 ml/min; Est GFR (Non-African American) 54.5 ml/min; Potassium 4.7 mmol/L (3.5-5.1)
[2021-06-13] MEDS: LACTATED RINGER'S 1,000 ML IV SCH (13:10)
--- NOTE | 2021-06-13 13:11 | Orthopedic Progress Note ---
Date of Service June 13, 2021 Assessment & Plan (1) Septic joint of right knee joint: Overall she is doing as well as expected. She is on vancomycin. Preliminary cultures have grown out staph. The drain output was 0 so I went ahead and remove the drain. She can continue to be weightbearing as tolerated. We are still awaiting final cultures and sensitivities. Urmila Avendaño was seen and examined at bedside this morning. Overall she is doing fairly well. She has some sharp pains in the knee at times but overall its not too bad. She has been up and ambulating to the bathroom. She is on IV antibiotics. She has no other complaints. Review of Systems All systems reviewed & are unremarkable except as noted in HPI & below. Physical Exam On physical examination of the right knee, the dressing is clean and dry. Her leg is out full extension. She has a knee immobilizer on. I pulled the drain.. Results & Data Results & Data Laboratory Results . Diagnostic Findings . PG Care Time/CCT Total # of Minutes Spent Total Time Spent with Patient: Total time spent is greater than 50% in coordination of care (as documented) at patient's floor/unit and/or counseling patient: Coding Level of Care Code 38300 Post Operative Follow-Up Diagnoses Septic joint of right knee joint M00.9
--- NOTE | 2021-06-13 15:03 | Pharmacy Report ---
Pharmacy Vanc AUC Short Note - Date of Service June 13, 2021 - Assessment & Plan Assessment 80 year old F with septic right knee joint, s/p arthroscopy, arthroscopic irrigation and debridement on 06/11 Pertinent microbiologic data includes: R knee culture growing Staph species - further ID & sensitivity to follow Day # 3 of antimicrobial therapy Plan Vancomycin * Current dose: 1000 mg (12.7 mg/kg) IV every 18 hours * Random level obtained 06/13 @ 1353 resulted at 16.3 mcg/mL. Predicted AUC/BIANCA > 400 mg/L.hr * predict steady state AUC/BIANCA = 495 mg/L.hr * predict steady state trough = 16.1 * Repeat level in ~48 hours if patient is to remain on vancomycin Pharmacy will continue to follow and will adjust dose/frequency as necessary. Thank you. AUC/BIANCA is the preferred PK/PD target for vancomycin and is associated with decr eased risk of nephrotoxicity compared to traditional trough targets
--- NOTE | 2021-06-13 20:49 | Hospitalist Progress Note ---
Date of Service June 13, 2021 Assessment & Plan (1) Septic joint of right knee joint: Plan: S/p arthroscopy, arthroscopic irrigation and debridement on 06/11, POD#2. Continue Vancomycin IV; culture results pending, will likely require PICC line for min 6 weeks of IV abx therapy. APAP 1000 mg q8hr scheduled; Tramadol 50 to 100 mg q4hr prn mild pain, Oxycodone 5-10 mg q4hr prn moderate pain, Dilaudid 0.25 mg IV q4hr prn severe pain. Continue ASA 81mg qd, vitamin D 2000u PO qAM Monitor CBC and BMP daily. of note - blood cx's remain negative thus far (2) Primary osteoarthritis of right knee: Plan: now with septic knee (3) Coronary artery disease: Plan: Continue ASA & Simvastatin (intolerant of Atorvastatin) No ischemic symptoms (4) Dyslipidemia: Plan: Cont simvastatin (5) HTN (hypertension): Plan: Controlled Continue home ACEI, BB, Lasix. (6) History of non-ST elevation myocardial infarction (NSTEMI): Plan: On ASA and statin. No issues No ischemia (7) Pulmonary hypertension: Plan: - Chronic. o2 sats wnl no dyspnea (8) Osteoporosis: (9) Postoperative anemia: Plan: Mild Cont Fe supplementation (10) Mitral regurgitation: Plan: no issues acutely no CHF Plan: DVT proph - lovenox daily will cont to follow Admission and Anticipated Discharge Date Admission Date: June 11, 2021 Subjective c/o R knee pain otherwise no nausea or emesis no cp or dyspnea does c/o lack of appetite Review of Systems Review of Systems: gen - no fevers or chills Physical Exam Physical Exam: gen - NAD, lying comfortably in bed mouth - mmm neck - no JVD heart - RRR, s1 s2, no murmur lungs - CTA b/l abd - soft NT ND BS+ ext - right knee wrapped in large dressings with brace in place; mild ankle edema on right, none on left Results & Data Results & Data ([facility]) Vital Signs (Past 12 Hours) Vital Signs Temp Pulse Resp BP Pulse Ox 06/13/21 14:10 36.8 C 83 17 117/73 95 Laboratory Results Laboratory Results - last 24 hr 06/13/21 06/13/21 06/13/21 08:59 08:59 13:53 WBC 10.86 H RBC 3.02 L Hgb 9.6 L Hct 29.5 L MCV 97.7 MCH 31.8 MCHC 32.5 RDW Std Deviation 48.7 H RDW Coeff of [place] 13.6 Plt Count 317 MPV 9.6 Sodium 134 L Potassium 4.7 Chloride 106 Carbon Dioxide 23 Anion Gap 5 BUN 25 H Creatinine 0.98 Est Cr Clr Drug Dosing 40.5 Est GFR ( Amer) 63.1 Est GFR (Non-Af Amer) 54.5 BUN/Creatinine Ratio 25.5 H Glucose 135 H Calcium 9.1 Iron 17 L Ferritin 93.0 Random Vancomycin 16.3 Diagnostic Findings blood cx's neg to date R knee culture - staph species PG Care Time/CCT Total # of Minutes Spent Total Time Spent with Patient: Total time spent is greater than 50% in coordination of care (as documented) at patient's floor/unit and/or counseling patient: Coding Level of Care Code 18340 Subseq Hosp Care Lvl 1 Diagnoses Septic joint of right knee joint M00.9 Primary osteoarthritis of right knee M17.11 Coronary artery disease I25.10 Associated angina: without angina Coronary Disease-Associated Artery/Lesion type: [place] artery [place] vs. transplanted heart: [place] heart Dyslipidemia E78.5 HTN (hypertension) I10 Hypertension type: essential hypertension History of non-ST elevation myocardial infarction (NSTEMI) I25.2 Pulmonary hypertension I27.20 Osteoporosis M81.0 Postoperative anemia D64.9 Mitral regurgitation I34.0 (1) Coronary artery disease Associated angina: without angina Coronary Disease-Associated Artery/Lesion type: [place] artery [place] vs. transplanted heart: [place] heart Qualified Code(s): I25.10 - Atherosclerotic heart disease of [place] coronary artery without angina pectoris (2) HTN (hypertension) Hypertension type: essential hypertension Qualified Code(s): I10 - Essential (primary) hypertension
[2021-06-13] MEDS: SENNA 8.6 MG TAB PO SCH (21:41)
[2021-06-14 04:14] LABS: Appearance Urine Clear (Clear); Bacteria Urine Automated Negative (Negative); Bilirubin Urine Negative (Negative); Blood Urine Trace (Negative); Color Urine Yellow; Epithelial Cell Urine Auto 0-5 /lpf (0-5); Glucose Urine UA Negative (Negative); Ketones Urine Negative (Negative); Leukocyte Esterase Urine Negative (Negative); Nitrite Urine Negative (Negative); Protein Urine Negative (Negative); RBC Urine Automated 0-4 /hpf (0-4); Specific Gravity Urine 1.009 (1.000-1.030); Urobilinogen Urine Negative (Negative); WBC Urine Automated 0 /hpf (0-5)
[2021-06-14] MEDS: ACETAMINOPHEN 500 MG TAB PO SCH ×3 (05:29→21:48)
--- NOTE | 2021-06-14 06:07 | Electrocardiogram Report ---
Test Reason : Blood Pressure : / mmHG Vent. Rate : 081 BPM Atrial Rate : 081 BPM P-R Int : 126 ms QRS Dur : 080 ms QT Int : 374 ms P-R-T Axes : 070 014 -05 degrees QTc Int : 434 ms Normal sinus rhythm Normal ECG When compared with ECG of 18-NOV-2018 04:22, No significant change was found Confirmed by Bobby Martin ([id number]) on 06/14/2021 6:06:55 AM Referred By: Osman Gr Confirmed By:Bobby Martin
[2021-06-14] MEDS: SIMVASTATIN 10 MG TAB PO SCH (07:30)
[2021-06-14] MEDS: CHOLECALCIFEROL 1,000 UNITS 25 MCG TAB PO SCH (07:30)
[2021-06-14] MEDS: CITALOPRAM 40 MG TAB PO SCH (07:30)
[2021-06-14] MEDS: CEROVITE ADV FORMULA TAB PO SCH (07:30)
[2021-06-14] MEDS: METOPROLOL SUCC 50MG EXT REL TAB PO SCH (07:31)
[2021-06-14] MEDS: lisinopril 20 MG TAB PO SCH (07:31)
[2021-06-14] MEDS: DOCUSATE SODIUM 100 MG CAP PO SCH ×2 (07:31→21:48)
[2021-06-14] MEDS: ASPIRIN 81 MG ECTAB PO SCH (07:31)
[2021-06-14] MEDS: ENOXAPARIN INJ 40 MG/0.4 ML SYR SQ SCH (07:31)
--- NOTE | 2021-06-14 08:59 | XRay Report ---
XR knee RT 1 or 2V routine CLINICAL HISTORY: Right knee pain. COMPARISON STUDY: Right knee 02/01/2012. FINDINGS: Severe tricompartmental osteoarthritis with [id number] articulation, subchondral sclerosi s, and marginal osteophytes at this has progressed in the interval. No significant knee effusion. Mil d anterior soft tissue swelling. No erosive changes identified. Curvilinear lucency at the lateral fe moral condyle is likely due to the overlapping osteophytes. IMPRESSION: 1. Severe tricompartmental osteoarthritis within the right knee. This has progressed in the interval. 2. Mild anterior soft tissue swelling. 3. No definite fractures. ACT 112: Negative or not required by law. Electronically signed by: Benny Vargas M.D. 06/14/2021 8:58 AM
--- NOTE | 2021-06-14 12:41 | Orthopedic Progress Note ---
Date of Service June 14, 2021 Assessment & Plan (1) Septic joint of right knee joint: Plan: Postop day 3-status post irrigation, debridement of her right knee arthroscopically. Continue physical therapy and Occupational Therapy-we will allow for full range of motion as tolerated to her right lower extremity. She can be weight-bear as tolerated and discontinue the knee immobilizer. Recommend use of walker to assist with ambulation. Lovenox for DVT prophylaxis along with BRITTANIE stockings and SCDs. Tylenol or oxycodone or tramadol as needed for pain. Ice to right knee as needed for pain and swelling. Appreciate medical assistance for management of chronic medical problems. Will obtain an infectious disease consult as her cultures are positive for Staphylococcus. Continue IV vancomycin until ID recommendations are obtained. Most likely will need PICC line With 6 weeks of IV antibiotics. Patient understands and agrees with the plan. Will continue to follow. Dr. Gr present for today's visit. Admission and Anticipated Discharge Date Admission Date: June 11, 2021 Subjective Patient resting in bed. Denies any significant right knee pain. She states occasionally when she does move her knee she does feel pain. She does not have much of an appetite. She has been out of bed with assistance. Physical Exam Musculoskeletal: Exam of her right knee: Incisions are clean, dry and. Retained sutures. Trace effusion to her right knee. No significant ecchymosis. No distal edema. Distal sensation is normal. Full range of motion of her right ankle. Strength 5/5. She is unable to lift her leg Independently today due to discomfort. Calf is supple and nontender. Results & Data ([facility]) Vital Signs (Past 12 Hours) Vital Signs Temp Pulse Resp BP Pulse Ox 06/14/21 07:27 36.8 C 87 18 144/81 H 95 Laboratory Results 06/14/21 06/13/21 Range/Units 03:50 13:53 Urine Color Yellow Urine Appearance Clear (Clear) Urine pH 5.0 (4.5-7.5) Ur Specific [place] 1.009 (1.000-1.030) Urine Protein Negative (Negative) Urine Glucose (UA) Negative (Negative) Urine Ketones Negative (Negative) Urine Blood Trace H (Negative) Urine Nitrite Negative (Negative) Urine Bilirubin Negative (Negative) Urine Urobilinogen Negative (Negative) Ur Leukocyte Esterase Negative (Negative) Urine WBC (Auto) 0 (0-5) /hpf Urine RBC (Auto) 0-4 (0-4) /hpf U Hyaline Cast (Auto) 1-5 (0-5) /lpf U Epithel Cells (Auto) 0-5 (0-5) /lpf Urine Bacteria (Auto) Negative (Negative) Random Vancomycin 16.3 (10-20) mcg/ml
[2021-06-14] MEDS: ceFAZolin 2000MG 2,000 MG/15 ML SYR IV SCH (14:22)
[2021-06-14] MEDS: SENNA 8.6 MG TAB PO SCH (21:48)
--- NOTE | 2021-06-15 00:13 | Hospitalist Progress Note ---
Date of Service June 15, 2021 Assessment & Plan (1) Septic joint of right knee joint: Plan: S/p arthroscopy, arthroscopic irrigation and debridement on 06/11, POD#3. right knee culture -- pansensitive coag neg staph * blood cx's negative from admission * IV abx options -- nafcillin vs ancef vs other; [facility] ID consultation pending * will need PICC line with minimum of 6 weeks IV abx Rx Tylenol 1000 mg TID scheduled; Tramadol 50 to 100 mg q4hr prn mild pain, Oxycodone 5-10 mg q4hr prn moderate pain, Dilaudid 0.25 mg IV q4hr prn severe pain. Continue ASA 81mg qd, vitamin D 2000u PO qAM (2) Primary osteoarthritis of right knee: Plan: now with septic knee (3) Coronary artery disease: Plan: Continue ASA & Simvastatin (intolerant of Atorvastatin) No ischemic symptoms to date (4) Dyslipidemia: Plan: Cont simvastatin (5) HTN (hypertension): Plan: Controlled Continue home ACEI, BB, Lasix prn. (6) History of non-ST elevation myocardial infarction (NSTEMI): Plan: On ASA and statin. No issues No ischemia (7) Pulmonary hypertension: Plan: Chronic. o2 sats wnl no dyspnea (8) Osteoporosis: (9) Postoperative anemia: Plan: Mild Cont Fe supplementation repeat CBC in am for stability if any worsening could consider IV venofer rather than PO iron (10) Mitral regurgitation: Plan: no issues acutely no CHF Plan: DVT proph - lovenox daily Admission and Anticipated Discharge Date Admission Date: June 11, 2021 Subjective pt states that her right knee pain was improved today was able to participate in PT better than previous eating is a little better today positive BMs since yesterday no other issues Review of Systems Review of Systems: gen - no fevers or chills cv - no cp pulm - no dyspnea GI - no bloating or abd pain; no nausea/emesis - had urinary frequency last pm - resolved; u/a sent - not suspicious for UTI Physical Exam Physical Exam: gen - NAD, lying comfortably in bed mouth - mmm neck - no JVD heart - RRR, s1 s2, no murmur lungs - CTA b/l abd - soft NT ND BS+ ext - right knee wrapped in large dressings with brace in place; mild ankle edema on right, none on left psych - a/o x 3 Results & Data Results & Data ([facility]) Vital Signs (Past 12 Hours) Vital Signs Temp Pulse Resp BP Pulse Ox 06/14/21 23:04 36.7 C 84 18 146/73 H 97 06/14/21 14:34 37.2 C 91 H 17 138/75 99 Laboratory Results Laboratory Results - last 24 hr 06/14/21 03:50 Urine Color Yellow Urine Appearance Clear Urine pH 5.0 Ur Specific [place] 1.009 Urine Protein Negative Urine Glucose (UA) Negative Urine Ketones Negative Urine Blood Trace H Urine Nitrite Negative Urine Bilirubin Negative Urine Urobilinogen Negative Ur Leukocyte Esterase Negative Urine WBC (Auto) 0 Urine RBC (Auto) 0-4 U Hyaline Cast (Auto) 1-5 U Epithel Cells (Auto) 0-5 Urine Bacteria (Auto) Negative Diagnostic Findings blood cx's from admission negative Right knee synovial fluid cx -- pansensitive coag neg staph PG Care Time/CCT Total # of Minutes Spent Total Time Spent with Patient: Total time spent is greater than 50% in coordination of care (as documented) at patient's floor/unit and/or counseling patient: Coding Level of Care Code 19800 Subseq Hosp Care Lvl 1 Diagnoses Septic joint of right knee joint M00.9 Primary osteoarthritis of right knee M17.11 Coronary artery disease I25.10 Associated angina: without angina Coronary Disease-Associated Artery/Lesion type: [place] artery [place] vs. transplanted heart: [place] heart Dyslipidemia E78.5 HTN (hypertension) I10 Hypertension type: essential hypertension History of non-ST elevation myocardial infarction (NSTEMI) I25.2 Pulmonary hypertension I27.20 Osteoporosis M81.0 Postoperative anemia D64.9 Mitral regurgitation I34.0 (1) Coronary artery disease Associated angina: without angina Coronary Disease-Associated Artery/Lesion type: [place] artery [place] vs. transplanted heart: [place] heart Qualified Code(s): I25.10 - Atherosclerotic heart disease of [place] coronary artery without angina pectoris (2) HTN (hypertension) Hypertension type: essential hypertension Qualified Code(s): I10 - Essential (primary) hypertension
[2021-06-15] MEDS: ceFAZolin 2000MG 2,000 MG/15 ML SYR IV SCH ×3 (00:40→16:09)
[2021-06-15] MEDS: oxyCODONE HCL IR 5 MG TAB (IMMEDIATE RELEASE) PO PRN ×2 (05:15→20:14)
[2021-06-15] MEDS: ACETAMINOPHEN 500 MG TAB PO SCH ×3 (05:16→21:17)
[2021-06-15 07:08] LABS: Hemoglobin 7.7 g/dL (12.0-16.0); Mean Corpuscular Hemoglobin 31.3 pg (25-34); Mean Corpuscular Hgb Conc 32.1 g/dL (32-36); Mean Corpuscular Volume 97.6 fL (80-100); Mean Platelet Volume 9.4 fL (7.4-10.4); Platelet Count 300 K/uL (130-400); RDW Coefficient of Variation 13.1 % (11.5-14.5); Red Blood Count 2.46 M/uL (4.2-5.4); White Blood Count 7.95 K/uL (4.8-10.8)
[2021-06-15] MEDS: CHOLECALCIFEROL 1,000 UNITS 25 MCG TAB PO SCH (08:09)
[2021-06-15] MEDS: lisinopril 20 MG TAB PO SCH (08:09)
[2021-06-15] MEDS: METOPROLOL SUCC 50MG EXT REL TAB PO SCH (08:09)
[2021-06-15] MEDS: CEROVITE ADV FORMULA TAB PO SCH (08:09)
[2021-06-15] MEDS: FERROUS SULFATE 325 MG TAB PO SCH (08:09)
[2021-06-15] MEDS: SIMVASTATIN 10 MG TAB PO SCH (08:09)
[2021-06-15] MEDS: DOCUSATE SODIUM 100 MG CAP PO SCH ×2 (08:09→21:17)
[2021-06-15] MEDS: CITALOPRAM 40 MG TAB PO SCH (08:09)
[2021-06-15] MEDS: ENOXAPARIN INJ 40 MG/0.4 ML SYR SQ SCH (08:09)
[2021-06-15] MEDS: ASPIRIN 81 MG ECTAB PO SCH (08:09)
[2021-06-15 08:41] LABS: BUN Creatinine Ratio 25.6 (10-20); Calcium 8.6 mg/dl (8.5-10.1); Creatinine Clr Calc Pharmacy 50.9 ml/min; Est GFR (African American) 83.2 ml/min; Est GFR (Non-African American) 71.8 ml/min; Magnesium 1.9 mg/dl (1.7-2.4); Potassium 4.1 mmol/L (3.5-5.1)
[2021-06-15 08:44] LABS: Hematocrit (blood only) 27.1 % (37-47); Hemoglobin 8.7 g/dL (12.0-16.0)
--- NOTE | 2021-06-15 14:27 | Hospitalist Progress Note ---
Date of Service June 15, 2021 Assessment & Plan (1) Septic joint of right knee joint: Plan: S/p arthroscopy, arthroscopic irrigation and debridement on 06/11, POD#3. -right knee culture -- MSSA * blood cx's negative from admission * IV abx options -- would recommend Nafcillin as this will be easier to transition to continuous infusion at home; Jp ID consultation pending * Midline would be sufficient as she would only need 2 weeks of parenteral antibiotics followed by 2 weeks of oral * Literature DOES NOT support 6 week of IV antibiotics in absence of osteomyelitis -Tylenol 1000 mg TID scheduled; Tramadol 50 to 100 mg q4hr prn mild pain, Oxycodone 5-10 mg q4hr prn moderate pain, Dilaudid 0.25 mg IV q4hr prn severe pain. -Continue ASA 81mg qd, vitamin D 2000u PO qAM -PT/OT (2) Postoperative anemia: Plan: -Post operative anemia is worse 5/3, AM CBC w/ hgb of 7.7, repeat 8.7, asymptomatic -Hold Ferrous Sulfate in favor of dose of Venofer 300mg IV -Repeat CBC in AM (3) Primary osteoarthritis of right knee: Plan: -now with septic knee (4) Coronary artery disease: Plan: w/ history of NSTEMI -Continue ASA & Simvastatin (intolerant of Atorvastatin) -No ischemic symptoms to date (5) Dyslipidemia: Plan: -Cont simvastatin (6) HTN (hypertension): Plan: -Controlled on home regimen of ACEI, BB, Lasix prn. (7) Mitral regurgitation: Plan: -no issues acutely -no CHF Plan: DVT proph - lovenox daily My recommendations have been outlined above. As noted, ID consult is pending. AM labs ordered. Will continue to follow along. Plan to be d/w Dr. Bustamante. Admission and Anticipated Discharge Date Admission Date: June 11, 2021 Subjective Patient seen on daily rounds this morning. She is resting comfortably in bedside chair. Offers no new complaints/concerns. Was medicated for R knee pain overnight but has no pain at present. No cp, dyspnea, n/v/d, f/c, headache. Is moving bowels and voiding w/o issue. Review of Systems Review of Systems: All systems reviewed and are unremarkable except as noted in HPI and below. Denies fever, chills, fatigue, headache, nasal congestion, sore throat, cough, chest pain, shortness of breath, palpitations, orthopnea, PND, abdominal pain, n/v/d, constipation, dysuria, hematuria, frequency, back pain, easy bruising or bleeding, skin lesions or rashes. Physical Exam Physical Exam: GENERAL: 80 yo well-developed, well-nourished WF. NAD. LUNGS: Clear to auscultation bilaterally. No W/R/R. CARDIOVASCULAR: Regular rate and rhythm. No M/G/R. No JVD. ABDOMEN: Soft, non-tender and non-distended. BS normal x 4 quad. EXTREMITIES: No edema. Non-tender. Peripheral pulses +2/4. R knee is dres sed/wrapped in FLORINDA with overlying ice pack. NEUROLOGIC: A&O x3. PSYCHIATRIC: Cooperative. Appropriate mood and affect. SKIN: Warm, dry, intact. No rashes or lesions. Results & Data Results & Data ([facility]) Vital Signs (Past 12 Hours) Vital Signs Temp Pulse Resp BP Pulse Ox 06/15/21 13:54 36.7 C 90 18 133/74 97 06/15/21 08:23 36.7 C 88 16 160/79 H 99 Laboratory Results 06/15/21 08:24 06/15/21 06:42 PG Care Time/CCT Total # of Minutes Spent Total Time Spent with Patient: Total time spent is greater than 50% in coordination of care (as documented) at patient's floor/unit and/or counseling patient: Coding Level of Care Code 14346 Subseq Hosp Care Lvl 2 Diagnoses Septic joint of right knee joint M00.9 Primary osteoarthritis of right knee M17.11 Coronary artery disease I25.10 Coronary Disease-Associated Artery/Lesion type: [place] artery [place] vs. transplanted heart: [place] heart Associated angina: without angina Dyslipidemia E78.5 HTN (hypertension) I10 Hypertension type: essential hypertension Postoperative anemia D64.9 Mitral regurgitation I34.0 (1) Coronary artery disease Coronary Disease-Associated Artery/Lesion type: [place] artery [place] vs. transplanted heart: [place] heart Associated angina: without angina Qualified Code(s): I25.10 - Atherosclerotic heart disease of [place] coronary artery without angina pectoris (2) HTN (hypertension) Hypertension type: essential hypertension Qualified Code(s): I10 - Essential (primary) hypertension
[2021-06-15] MEDS ORDERED: IRON SUCROSE 300 MG in SODIUM CHLORIDE 0.9% 250 ML IV ONE (14:30)
--- NOTE | 2021-06-15 15:59 | Orthopedic Progress Note ---
Date of Service June 15, 2021 Assessment & Plan (1) Septic joint of right knee joint: Plan: Postop day 4-status post irrigation, debridement of her right knee arthroscopically. Continue physical therapy and Occupational Therapy-we will allow for full range of motion as tolerated to her right lower extremity. She can be weight-bear as tolerated and discontinue the knee immobilizer. Recommend use of walker to assist with ambulation. Lovenox for DVT prophylaxis along with JAY stockings and SCDs. Tylenol or oxycodone or tramadol as needed for pain. Ice to right knee as needed for pain and swelling. Appreciate medical assistance for management of chronic medical problems. She was seen by ID today, PICC/midline consent obtained. Awaiting note from ID regarding recommendations. Continue IV Ancef until ID recommendations are obtained. - may change to nafcillin. Appreciate medicine assistance, but awaiting ID consult recommendations. Apparently ID recommending echo - not sure what kind to rule out valve vegetation, but still waiting for note/recommendations. Most likely will need PICC or midline for a few weeks; then PO abx for total treatment of possibly 4 weeks. Patient understands and agrees with the plan. Will continue to follow. Dr. Gr present for today's visit. Admission and Anticipated Discharge Date Admission Date: June 11, 2021 Subjective Patient resting in bed, daughter at bedside. She is "down in the dumps". She has no appetite. She does feel that her knee is getting better and she's getting around better in the room. She sat in a chair all morning. She's been using her walker. Physical Exam Musculoskeletal: Distal N/V function, strength intact. Able to bend her knee and independently SLR RLE. Dorsalis pedis and posterior tib pulses 1+. Jay and marissa bandage in place. Results & Data ([facility]) Vital Signs (Past 12 Hours) Vital Signs Temp Pulse Resp BP Pulse Ox 06/15/21 13:54 36.7 C 90 18 133/74 97 06/15/21 08:23 36.7 C 88 16 160/79 H 99 Laboratory Results 06/15/21 06/15/21 06/15/21 Range/Units 08:24 06:42 06:42 WBC 7.95 (4.8-10.8) K/uL RBC 2.46 L (4.2-5.4) M/uL Hgb 8.7 L 7.7 L (12.0-16.0) g/dL Hct 27.1 L 24.0 L (37-47) % MCV 97.6 (80-100) fL MCH 31.3 (25-34) pg MCHC 32.1 (32-36) g/dL RDW Std Deviation 47.0 H (36.4-46.3) fL RDW Coeff of Bon[place] 13.1 (11.5-14.5) % Plt Count 300 (130-400) K/uL MPV 9.4 (7.4-10.4) fL Sodium 137 (136-145) mmol/L Potassium 4.1 (3.5-5.1) mmol/L Chloride 107 (98-107) mmol/L Carbon Dioxide 24 (21-32) mmol/L Anion Gap 6 (3-11) BUN 20 (6-23) mg/dl Creatinine 0.78 (0.6-1.2) mg/dl Est Cr Clr Drug Dosing 50.9 ml/min Est GFR ( Amer) 83.2 ml/min Est GFR (Non-Af Amer) 71.8 ml/min BUN/Creatinine Ratio 25.6 H (10-20) Glucose 81 (70-99(Fasting)) mg/dl Calcium 8.6 (8.5-10.1) mg/dl Magnesium 1.9 (1.7-2.4) mg/dl
[2021-06-15] MEDS: SENNA 8.6 MG TAB PO SCH (21:17)
[2021-06-16] MEDS: ceFAZolin 2000MG 2,000 MG/15 ML SYR IV SCH (00:07)
[2021-06-16] MEDS: ACETAMINOPHEN 500 MG TAB PO SCH ×3 (05:33→21:57)
[2021-06-16 06:16] LABS: Basophils # (auto) 0.01 K/uL (0-0.2); Basophils % (auto) 0.1 %; Eosinophils % (auto) 2.5 %; Hemoglobin 8.6 g/dL (12.0-16.0); Immature Granulocytes # (auto) 0.05 K/uL (0.00-0.02); Immature Granulocytes % (auto) 0.6 %; Lymphocytes # (auto) 1.06 K/uL (1.2-3.4); Mean Corpuscular Hemoglobin 30.9 pg (25-34); Mean Corpuscular Hgb Conc 31.9 g/dL (32-36); Mean Corpuscular Volume 97.1 fL (80-100); Mean Platelet Volume 9.7 fL (7.4-10.4); Monocytes # (auto) 0.77 K/uL (0.11-0.59); Monocytes % (auto) 9.5 %; Neutrophils # (auto) 6.04 K/uL (1.4-6.5); Neutrophils % (auto) 74.3 %; Platelet Count 354 K/uL (130-400); RDW Coefficient of Variation 13.3 % (11.5-14.5); RDW Standard Deviation 47.1 fL (36.4-46.3); Red Blood Count 2.78 M/uL (4.2-5.4); White Blood Count 8.13 K/uL (4.8-10.8)
[2021-06-16 06:39] LABS: BUN Creatinine Ratio 22.2 (10-20); C Reactive Protein 17.83 mg/dl (0-0.5); Calcium 8.8 mg/dl (8.5-10.1); Creatinine Clr Calc Pharmacy 55.2 ml/min; Est GFR (African American) 91.7 ml/min; Est GFR (Non-African American) 79.1 ml/min; Magnesium 1.8 mg/dl (1.7-2.4); Potassium 4.3 mmol/L (3.5-5.1)
[2021-06-16] MEDS: METOPROLOL SUCC 50MG EXT REL TAB PO SCH (07:43)
[2021-06-16] MEDS: CHOLECALCIFEROL 1,000 UNITS 25 MCG TAB PO SCH (07:43)
[2021-06-16] MEDS: CEROVITE ADV FORMULA TAB PO SCH (07:43)
[2021-06-16] MEDS: lisinopril 20 MG TAB PO SCH (07:43)
[2021-06-16] MEDS: ASPIRIN 81 MG ECTAB PO SCH (07:43)
[2021-06-16] MEDS: DOCUSATE SODIUM 100 MG CAP PO SCH ×2 (07:43→20:33)
[2021-06-16] MEDS: SIMVASTATIN 10 MG TAB PO SCH (07:43)
[2021-06-16] MEDS: CITALOPRAM 40 MG TAB PO SCH (07:43)
[2021-06-16] MEDS: ENOXAPARIN INJ 40 MG/0.4 ML SYR SQ SCH (07:44)
[2021-06-16] MEDS: cefTRIAXone SODIUM 2,000 MG in DEXTROSE 5% 50 ML IV SCH (10:23)
--- NOTE | 2021-06-16 10:23 | Hospitalist Progress Note ---
Date of Service June 16, 2021 Assessment & Plan (1) Septic joint of right knee joint: Plan: S/p arthroscopy, arthroscopic irrigation and debridement on 06/11, POD#4. -right knee culture -- MSSA * blood cx's negative from admission * IV abx -- d/w ID, Dr. Razo, recommendation: 2 weeks of IV Rocephin 2g daily (convenient as it is only administer once daily) x 10 more days followed by 2 week of oral Keflex 500mg QID x 2 weeks * Midline will need to be inserted, this has been ordered * Echo ordered to r/o evidence of vegetation, it is pending at this time -Tylenol 1000 mg TID scheduled; Tramadol 50 to 100 mg q4hr prn mild pain, Oxycodone 5-10 mg q4hr prn moderate-severe pain -Continue ASA 81mg qd, vitamin D 2000u PO qAM -PT/OT recommending rehab, initially pt resistant to this but now agreeable to go to [facility] (2) Postoperative anemia: Plan: -Post operative anemia is worse 06/15, AM CBC w/ hgb of 7.7, repeat 8.7, asymptomatic -Hold Ferrous Sulfate in favor of dose of Venofer 300mg IV, given dose on 06/16, will give another dose 06/17 -Resume FeSO4 on discharge and would increase to daily dosing (previously being administered was q48h) -Repeat CBC in AM (3) Primary osteoarthritis of right knee: Plan: -now with septic knee (4) Coronary artery disease: Plan: w/ history of NSTEMI -Continue ASA & Simvastatin (intolerant of Atorvastatin) -No ischemic symptoms to date (5) HTN (hypertension): Plan: -Controlled on home regimen of ACEI, BB, Lasix prn. Plan: Currently on Lovenox for DVT ppx which will be continued Follow up labs ordered for tomorrow PT/OT recommending rehab, d/w case management, referrals to be sent, pt agreeable to [facility] I have no further recommendations at this time, will sign off but continue to follow peripherally Plan to be d/w Dr. Harjinder Bustamante Admission and Anticipated Discharge Date Admission Date: June 11, 2021 Subjective Patient seen on rounds this morning. She is resting comfortably, participating with PT at the time of my visit. She reports knee pain is adequately controlled, no cp, dyspnea, n/v/d, f/c, headache, or gu symptoms. Review of Systems Review of Systems: All systems reviewed and are unremarkable except as noted in HPI and below. Denies fever, chills, fatigue, headache, nasal congestion, sore throat, cough, chest pain, shortness of breath, palpitations, orthopnea, PND, abdominal pain, n/v/d, constipation, dysuria, hematuria, frequency, back pain, easy bruising or bleeding, skin lesions or rashes. Physical Exam Physical Exam: GENERAL: 80 yo well-developed, well-nourished WF. NAD. LUNGS: Clear to auscultation bilaterally. No W/R/R. CARDIOVASCULAR: Regular rate and rhythm. ABDOMEN: Soft, non-tender and non-distended. BS normal x 4 quad. EXTREMITIES: No edema. Non-tender. Peripheral pulses +2/4. R knee is dressed/wrapped in FLORINDA. No calf tenderness. NEUROLOGIC: A&O x3. PSYCHIATRIC: Cooperative. Appropriate mood and affect. SKIN: Warm, dry, intact. No rashes or lesions. Results & Data Results & Data ([facility]) Vital Signs (Past 12 Hours) Vital Signs Temp Pulse Resp BP Pulse Ox 06/16/21 07:38 36.9 C 75 16 158/79 H 96 06/15/21 22:46 36.7 C 76 18 152/76 H 96 Laboratory Results 06/16/21 05:25 06/16/21 05:25 PG Care Time/CCT Total # of Minutes Spent Total Time Spent with Patient: Total time spent is greater than 50% in coordination of care (as documented) at patient's floor/unit and/or counseling patient: Coding Level of Care Code 94867 Subseq Hosp Care Lvl 2 Diagnoses Septic joint of right knee joint M00.9 Postoperative anemia D64.9 Primary osteoarthritis of right knee M17.11 Coronary artery disease I25.10 Coronary Disease-Associated Artery/Lesion type: [place] artery [place] vs. transplanted heart: [place] heart Associated angina: without angina HTN (hypertension) I10 Hypertension type: essential hypertension (1) Coronary artery disease Coronary Disease-Associated Artery/Lesion type: [place] artery [place] vs. transplanted heart: [place] heart Associated angina: without angina Qualified Code(s): I25.10 - Atherosclerotic heart disease of [place] coronary artery without angina pectoris (2) HTN (hypertension) Hypertension type: essential hypertension Qualified Code(s): I10 - Essential (primary) hypertension
[2021-06-16] MEDS ORDERED: IRON SUCROSE 300 MG in SODIUM CHLORIDE 0.9% 250 ML IV ONE (10:30)
--- NOTE | 2021-06-16 16:11 | XCELERA ---
[id number]
--- NOTE | 2021-06-16 18:11 | Progress Notes ---
DATE OF SERVICE: 06/16/2021. The patient is resting comfortably in bed. She was able to do PT and OT today. She has visitors. She is afebrile. Her vital signs are stable. White count 8, hemoglobin 9, hematocrit 27, platelets are 354. C-reactive protein decreased to 18. Cultures have grown out pansensitive coagulase-negative staphylococcus. Plan according to the Medicine and Infectious Diseases is 2 weeks of IV Rocephin and 2 weeks of oral Keflex. DISPOSITION: To [facility] is pending. We will reconvene tomorrow. Continue Lovenox for DVT p rophylaxis. Her midline has been inserted. X-rays done yesterday revealed severe arthritis of the k nee without evidence of osteomyelitis. No fracture. Job ID: [id number]
[2021-06-16] MEDS: oxyCODONE HCL IR 5 MG TAB (IMMEDIATE RELEASE) PO PRN (18:29)
[2021-06-16] MEDS: SENNA 8.6 MG TAB PO SCH (20:33)
[2021-06-17] MEDS: oxyCODONE HCL IR 5 MG TAB (IMMEDIATE RELEASE) PO PRN (01:38)
[2021-06-17] MEDS: ACETAMINOPHEN 500 MG TAB PO SCH ×3 (05:58→21:57)
[2021-06-17 06:00] LABS: Basophils # (auto) 0.02 K/uL (0-0.2); Basophils % (auto) 0.3 %; Eosinophils # (auto) 0.18 K/uL (0-0.5); Eosinophils % (auto) 2.4 %; Hematocrit (blood only) 25.3 % (37-47); Hemoglobin 8.2 g/dL (12.0-16.0); Immature Granulocytes # (auto) 0.11 K/uL (0.00-0.02); Immature Granulocytes % (auto) 1.5 %; Lymphocytes # (auto) 1.23 K/uL (1.2-3.4); Lymphocytes % (auto) 16.4 %; Mean Corpuscular Hemoglobin 31.5 pg (25-34); Mean Corpuscular Hgb Conc 32.4 g/dL (32-36); Mean Corpuscular Volume 97.3 fL (80-100); Mean Platelet Volume 9.3 fL (7.4-10.4); Monocytes # (auto) 0.95 K/uL (0.11-0.59); Monocytes % (auto) 12.7 %; Neutrophils # (auto) 5.01 K/uL (1.4-6.5); Neutrophils % (auto) 66.7 %; Platelet Count 356 K/uL (130-400); RDW Coefficient of Variation 13.4 % (11.5-14.5); RDW Standard Deviation 47.1 fL (36.4-46.3)
[2021-06-17 06:23] LABS: BUN Creatinine Ratio 20.9 (10-20); Calcium 8.6 mg/dl (8.5-10.1); Creatinine Clr Calc Pharmacy 59.3 ml/min; Est GFR (African American) 96.2 ml/min; Potassium 3.8 mmol/L (3.5-5.1)
[2021-06-17] MEDS: SIMVASTATIN 10 MG TAB PO SCH (08:27)
[2021-06-17] MEDS: CEROVITE ADV FORMULA TAB PO SCH (08:28)
[2021-06-17] MEDS: lisinopril 20 MG TAB PO SCH (08:28)
[2021-06-17] MEDS: METOPROLOL SUCC 50MG EXT REL TAB PO SCH (08:28)
[2021-06-17] MEDS: DOCUSATE SODIUM 100 MG CAP PO SCH ×2 (08:28→21:16)
[2021-06-17] MEDS: ASPIRIN 81 MG ECTAB PO SCH (08:28)
[2021-06-17] MEDS: CHOLECALCIFEROL 1,000 UNITS 25 MCG TAB PO SCH (08:28)
[2021-06-17] MEDS: ENOXAPARIN INJ 40 MG/0.4 ML SYR SQ SCH (08:29)
[2021-06-17] MEDS: cefTRIAXone SODIUM 2,000 MG in DEXTROSE 5% 50 ML IV SCH (08:35)
[2021-06-17] MEDS: CITALOPRAM 40 MG TAB PO SCH (11:08)
--- NOTE | 2021-06-17 12:21 | Hospitalist Progress Note ---
Date of Service June 17, 2021 Assessment & Plan (1) Septic joint of right knee joint: Plan: [place] kne[place]ollowing Synvisc injection S/p arthroscopy, arthroscopic irrigation and debridement on 06/11 right knee culture --coag negative staph speciesnot lugdunensis. Pansensitive Blood cultures negative ESR: 50, CRP: 21.2 (will need these trended) Seen by infectious diseaserecommending 2 to 4 weeks of IV Ancef (2 weeks if echocardiogram negative) followed by 2 weeks of oral Keflex -- prior provider d/w ID, Dr. Razo: 2 weeks of IV Rocephin 2g daily (convenient as it is only administer once daily) x to conclude 06/26 followed by 2 week of oral Keflex 500mg QID x 2 weeks Ultrasound-guided line to left upper extremity in place Echo showing no evidence of vegetation Continue pain controlat discretion of primary team Recommend DVT prophylaxis X 14 daysdrug, dose, duration at discretion of primary team PT/OT recommending rehab. Case management working on this (2) Postoperative anemia: Plan: -Post operative anemia is worse 06/15, AM CBC w/ hgb of 7.7, repeat 8.7, asymptomatic -Preoperative hemoglobin 11.4. Down to 7.7 on 06/15 -Iron level low at 17 -Venofer 300mg IV, given 06/16 & 06/17 -continue FeSO4-- add vitamin C to help with absorption -Exacerbation of chronic anemia is likely postsurgical and dilutional (fluid balance +7.18 L). Patient asymptomatic. Will continue to follow. -obtain FOB and hold ASA in the interim. Continue lovenox for DVT prophylaxis (3) Primary osteoarthritis of right knee: Plan: -now with septic knee (4) Coronary artery disease: Plan: w/ history of NSTEMI -hold ASA for now -continue Simvastatin (intolerant of Atorvastatin) -No ischemic symptoms to date (5) HTN (hypertension): Plan: -Controlled on home regimen of ACEI, BB, Lasix prn. Plan: Currently on Lovenox for DVT ppx which will be continued Follow up labs ordered for tomorrow PT/OT recommending rehab, d/w case management, referrals to be sent, pt agreeable. Plan was for discharge to [facility] but no beds available. Case management sending out other referrals Plan d/w Dr. Florez Admission and Anticipated Discharge Date Admission Date: June 11, 2021 Subjective Patient seen on daily rounds today. She is an 80-year-old white female hospitalized with a [place] septic joint following Synvisc infusion. Under the service of orthopedics. She is s/p I&D done 06/11. Culture data showing pansensitive coag negative staph species. Has since been seen by infectious disease who was initially recommending IV Ancef X 2 weeks followed by Keflex but reports Rocephin can be utilized for convenience upfront. Echocardiogram done showing no evidence of vegetation. Plan was for discharge to [facility] today; however, no available beds. Case management working on other referrals. Patient denies fevers, chills, chest pain, shortness of breath, abdominal pain, nausea or vomiting. Nursing voices no complaints or concerns. Review of Systems Review of Systems: All systems reviewed and are unremarkable except as noted in HPI and below Denies fevers, chills, headache, nasal congestion, sore throat, cough, chest pain, shortness of breath, palpitations, orthopnea, PND, abdominal pain, nausea, vomiting, diarrhea, constipation, dysuria, hematuria, frequency, back pain, joint pain or swelling, easy bruising or bleeding, skin lesions or rashes. Physical Exam Physical Exam: General: Resting comfortably in her bedside chair. She does not appear ill or toxic. NAD. HEENT: Head is AT/NC. Buccal mucosa is moist and pink Neck: No JVD. Negative hepatojugular reflex Cardiac: RRR with 1/6 [place] Lungs: CTA without W/R/R Abdomen: Normoactive X4. Soft and nontender in all quadrants. Extremities: Armani wrap to right knee. No indwelling drains. Distal pulses to the bilateral lower extremities are intact and symmetrical. Capillary fill +2. Negative Homans' sign. No calf tenderness Neuro: A&O X4. Cranial nerves II through XII are grossly intact. No focal neuro deficits Skin: No obvious skin lesions or rashes Psych: Appropriate affect. Pleasant and cooperative Results & Data Results & Data ([facility]) Vital Signs (Past 12 Hours) Vital Signs Temp Pulse Resp BP Pulse Ox 06/17/21 07:59 36.6 C 84 16 154/76 H 96 Laboratory Results 06/17/21 05:36 06/17/21 05:36 PG Care Time/CCT Total # of Minutes Spent Total Time Spent with Patient: Total time spent is greater than 50% in coordination of care (as documented) at patient's floor/unit and/or counseling patient: Coding Level of Care Code 46357 Inpt Consult Level 3 Diagnoses Septic joint of right knee joint M00.9 Postoperative anemia D64.9 Primary osteoarthritis of right knee M17.11 Coronary artery disease I25.10 Associated angina: without angina Coronary Disease-Associated Artery/Lesion type: [place] artery [place] vs. transplanted heart: [place] heart HTN (hypertension) I10 Hypertension type: essential hypertension (1) Coronary artery disease Associated angina: without angina Coronary Disease-Associated Artery/Lesion type: [place] artery [place] vs. transplanted heart: [place] heart Qualified Code(s): I25.10 - Atherosclerotic heart disease of [place] coronary artery wi thout angina pectoris (2) HTN (hypertension) Hypertension type: essential hypertension Qualified Code(s): I10 - Essential (primary) hypertension
[2021-06-17] MEDS: FERROUS SULFATE 325 MG TAB PO SCH (16:58)
--- NOTE | 2021-06-17 18:21 | Progress Notes ---
DATE OF SERVICE: 06/17/2021. The patient is resting comfortably in bed. PT notes are reviewed. She is improving. She feels bett er. Afebrile, vital signs stable. White count 8, hemoglobin 8, hematocrit 25, platelets are 356. PRP is noted. She is on ceftriaxone and Lovenox. On exam, her distal neurovascular function is intact. She has 5/5 ankle and toe plantarflexion and d orsiflexion. She has a 1+ dorsalis pedis pulse. She is able to do a straight leg raise and her knee motion is 0/10/50. There is no significant swelling in her knee and the arthroscopic portals are be nign. Dressing is changed. Band-Aids were applied along with her BRITTANIE hose. IMPRESSION: Septic arthritis of the right knee in the setting of severe osteoarthritis. PLAN: She got her midline yesterday. She is on Rocephin daily. No bed available at [facility]. Await ing a reply from [facility]. Continue antibiotics. PT, OT and DVT prophylaxis. Job ID: [id number]
[2021-06-17] MEDS: SENNA 8.6 MG TAB PO SCH (21:16)
[2021-06-18 05:27] LABS: Basophils # (auto) 0.02 K/uL (0-0.2); Basophils % (auto) 0.3 %; Eosinophils # (auto) 0.14 K/uL (0-0.5); Eosinophils % (auto) 1.8 %; Hematocrit (blood only) 26.1 % (37-47); Hemoglobin 8.5 g/dL (12.0-16.0); Immature Granulocytes % (auto) 2.5 %; Lymphocytes # (auto) 1.26 K/uL (1.2-3.4); Mean Corpuscular Hemoglobin 31.1 pg (25-34); Mean Corpuscular Hgb Conc 32.6 g/dL (32-36); Mean Corpuscular Volume 95.6 fL (80-100); Monocytes # (auto) 0.92 K/uL (0.11-0.59); Monocytes % (auto) 11.7 %; Neutrophils # (auto) 5.33 K/uL (1.4-6.5); Neutrophils % (auto) 67.7 %; Platelet Count 403 K/uL (130-400); RDW Coefficient of Variation 13.4 % (11.5-14.5); RDW Standard Deviation 46.7 fL (36.4-46.3); Red Blood Count 2.73 M/uL (4.2-5.4); White Blood Count 7.87 K/uL (4.8-10.8)
[2021-06-18 05:47] LABS: BUN Creatinine Ratio 20.9 (10-20); C Reactive Protein 15.36 mg/dl (0-0.5); Calcium 8.9 mg/dl (8.5-10.1); Creatinine Clr Calc Pharmacy 59.3 ml/min; Est GFR (African American) 96.2 ml/min; Magnesium 1.8 mg/dl (1.7-2.4); Potassium 3.9 mmol/L (3.5-5.1)
[2021-06-18] MEDS: ACETAMINOPHEN 500 MG TAB PO SCH ×3 (05:52→20:58)
[2021-06-18] MEDS: DOCUSATE SODIUM 100 MG CAP PO SCH ×2 (08:10→20:57)
[2021-06-18] MEDS: CEROVITE ADV FORMULA TAB PO SCH (08:10)
[2021-06-18] MEDS: ASCORBIC ACID 500 MG TAB PO SCH (08:10)
[2021-06-18] MEDS: SIMVASTATIN 10 MG TAB PO SCH (08:10)
[2021-06-18] MEDS: lisinopril 20 MG TAB PO SCH (08:10)
[2021-06-18] MEDS: CHOLECALCIFEROL 1,000 UNITS 25 MCG TAB PO SCH (08:10)
[2021-06-18] MEDS: ENOXAPARIN INJ 40 MG/0.4 ML SYR SQ SCH (08:11)
[2021-06-18] MEDS: CITALOPRAM 40 MG TAB PO SCH (08:11)
[2021-06-18] MEDS: METOPROLOL SUCC 50MG EXT REL TAB PO SCH (08:11)
[2021-06-18] MEDS ORDERED: FERROUS SULFATE 325 MG TAB PO SCH (09:00)
[2021-06-18] MEDS: cefTRIAXone SODIUM 2,000 MG in DEXTROSE 5% 50 ML IV SCH (09:08)
[2021-06-18] MEDS: oxyCODONE HCL IR 5 MG TAB (IMMEDIATE RELEASE) PO PRN (13:43)
--- NOTE | 2021-06-18 15:20 | Progress Notes ---
DATE OF SERVICE: 06/18/2021. The patient reports continued improvement. [facility] did not have any beds. She is now looking at [facility]. She is afebrile. Her vital signs are stable. White count is 8, hemoglobin 9, hematocri t 26, platelets 403. C-reactive protein is down to 15. Continue IV antibiotics, DVT prophylaxis and physical therapy. She reports improvement. We will continue to monitor and await transfer to [facility] nursing facility. Job ID: [id number]
--- NOTE | 2021-06-18 16:53 | Hospitalist Progress Note ---
Date of Service June 18, 2021 Assessment & Plan (1) Septic joint of right knee joint: Plan: [place] kneefollowing Synvisc injection S/p arthroscopy, arthroscopic irrigation and debridement on 06/11 right knee culture --coag negative staph speciesnot lugdunensis. Pansensitive Blood cultures negative ESR: 50, CRP: 21.2 (will need these trended) Seen by infectious diseaserecommending 2 IV Ancef (since TTE showing no obvious endocarditis) followed by 2 weeks of oral Keflex -- prior provider had transitioned to Rocephin 2g daily (for convenience). I think this is an appropriate plan if patient were going home; however, she will be going to an SNF and Ancef provides more adequate gram-positive coverage to conclude 06/25 with transition to oral Keflex on 06/26 for an additional 2 weeks Ultrasound-guided line to left upper extremity in place Echo showing no evidence of vegetation Continue pain controlat discretion of primary team Recommend DVT prophylaxis X 14 daysdrug, dose, duration at discretion of primary team PT/OT recommending rehab. Case management working on this (2) Postoperative anemia: Plan: -Acute on chronic -Preoperative hemoglobin 11.4. Down to 7.7 on 06/15 -Iron level low at 17 -Venofer 300mg IV, given 06/16 & 06/17 -continue FeSO4-- add vitamin C to help with absorption -Exacerbation of chronic anemia is likely postsurgical, frequent lab draws and dilutional (fluid balance +7.18 L). Patient asymptomatic. -Has known hemorrhoids that do not actively seem flared. Up-to-date with upper and lower endoscopy (3) Primary osteoarthritis of right knee: Plan: -now with septic knee (4) Coronary artery disease: Plan: w/ history of NSTEMI -Continue aspirin -continue Simvastatin (intolerant of Atorvastatin) -No ischemic symptoms to date (5) HTN (hypertension): Plan: -Controlled on home regimen of ACEI, BB, Lasix prn. Plan: Currently on Lovenox for DVT ppx which will be continued PT/OT recommending rehab, d/w case management, referrals to be sent, pt agreeable. Case management working on this We will sign off on this patient from a medical standpoint but please do not hesitate to reconsult should a problem arise. Thank you for allowing us to participate in the care of this patient Plan d/w Dr. Florez Admission and Anticipated Discharge Date Admission Date: June 11, 2021 Supervising Physician Co-Signing Physician Notes Attending Attestation - Chart reviewed, care plan d/w CLAIRE Garber. I agree with the [place] components of her documentation. Patricio Duarte MD Subjective Patient seen on daily rounds today. Annoyed that she remains in the hospital and that [facility] did not have a bed. Otherwise, she denies fevers, chills, chest pain, shortness of breath, abdominal pain, nausea or vomiting Review of Systems Review of Systems: All systems reviewed and are unremarkable except as noted in HPI and below Denies fevers, chills, headache, nasal congestion, sore throat, cough, chest pain, shortness of breath, palpitations, orthopnea, PND, abdominal pain, nausea, vomiting, diarrhea, constipation, dysuria, hematuria, frequency, back pain, join t pain or swelling, easy bruising or bleeding, skin lesions or rashes. Physical Exam Physical Exam: General: Resting comfortably in her bedside chair. She does not appear ill or toxic. NAD. HEENT: Head is AT/NC. Buccal mucosa is moist and pink Neck: No JVD. Negative hepatojugular reflex Cardiac: RRR with 1/6 [place] Lungs: CTA without W/R/R Abdomen: Normoactive X4. Soft and nontender in all quadrants. Extremities: Armani wrap to right knee. No indwelling drains. Distal pulses to the bilateral lower extremities are intact and symmetrical. Capillary fill +2. Negative Homans' sign. No calf tenderness Neuro: A&O X4. Cranial nerves II through XII are grossly intact. No focal neuro deficits Skin: No obvious skin lesions or rashes Psych: Appropriate affect. Pleasant and cooperative Results & Data Results & Data ([facility]) Vital Signs (Past 12 Hours) Vital Signs Temp Pulse Resp BP Pulse Ox 06/18/21 16:15 36.8 C 76 16 140/68 95 06/18/21 08:58 36.7 C 78 16 150/78 H 98 Laboratory Results 06/18/21 05:10 06/18/21 05:10 Close SUSCEPTIBILITIES [facility]. Org 1 = Coag neg staph not lugdunensis Collected: 06/11/21 17:35 Source: Knee,Right ANTIBIOTIC ORG 1 Clindamycin S Daptomycin S Erythromycin S Oxacillin S Tetracycline S Trimethoprim/Sulfamethoxazole S Vancomycin S PG Care Time/CCT Total # of Minutes Spent Total Time Spent with Patient: Total time spent is greater than 50% in coordination of care (as documented) at patient's floor/unit and/or counseling patient: Coding Level of Care Code 08398 Inpt Consult Level 4 Diagnoses Septic joint of right knee joint M00.9 Postoperative anemia D64.9 Primary osteoarthritis of right knee M17.11 Coronary artery disease I25.10 Coronary Disease-Associated Artery/Lesion type: [place] artery [place] vs. transplanted heart: [place] heart Associated angina: without angina HTN (hypertension) I10 Hypertension type: essential hypertension (1) Coronary artery disease Coronary Disease-Associated Artery/Lesion type: [place] artery [place] vs. transplanted heart: [place] heart Associated angina: without angina Qualified Code(s): I25.10 - Atherosclerotic heart disease of [place] coronary artery without angina pectoris (2) HTN (hypertension) Hypertension type: essential hypertension Qualified Code(s): I10 - Essential (primary) hypertension
[2021-06-18] MEDS: SENNA 8.6 MG TAB PO SCH (20:57)
[2021-06-19] MEDS: oxyCODONE HCL IR 5 MG TAB (IMMEDIATE RELEASE) PO PRN (00:27)
[2021-06-19] MEDS: ACETAMINOPHEN 500 MG TAB PO SCH ×3 (06:07→22:45)
[2021-06-19] MEDS: ceFAZolin 2000MG 2,000 MG/15 ML SYR IV SCH ×3 (06:08→22:46)
--- NOTE | 2021-06-19 07:46 | Progress Notes ---
DATE OF SERVICE: 06/19/2021. She is resting comfortably in bed. She has no complaint. She is afebrile. Her vital signs are stab le. Her knee appears benign. She is able to move her foot. Plan is awaiting a correction bed. Continue IV antibiotics and DVT prophylaxis as well as physical therapy. There has been no change in her cultures. She has no new labs today. Job ID: [id number]
[2021-06-19] MEDS: CEROVITE ADV FORMULA TAB PO SCH (08:08)
[2021-06-19] MEDS: CITALOPRAM 40 MG TAB PO SCH (08:08)
[2021-06-19] MEDS: SIMVASTATIN 10 MG TAB PO SCH (08:08)
[2021-06-19] MEDS: METOPROLOL SUCC 50MG EXT REL TAB PO SCH (08:08)
[2021-06-19] MEDS: ASCORBIC ACID 500 MG TAB PO SCH (08:08)
[2021-06-19] MEDS: lisinopril 20 MG TAB PO SCH (08:08)
[2021-06-19] MEDS: ENOXAPARIN INJ 40 MG/0.4 ML SYR SQ SCH (08:09)
[2021-06-19] MEDS: DOCUSATE SODIUM 100 MG CAP PO SCH ×2 (08:09→20:39)
[2021-06-19] MEDS: ASPIRIN 81 MG ECTAB PO SCH (09:31)
[2021-06-19] MEDS: CHOLECALCIFEROL 1,000 UNITS 25 MCG TAB PO SCH (09:31)
--- NOTE | 2021-06-19 12:22 | Hospitalist Progress Note ---
Date of Service June 19, 2021 Assessment & Plan (1) Septic joint of right knee joint: Plan: [place] kneefollowing Synvisc injection S/p arthroscopy, arthroscopic irrigation and debridement on 06/11 right knee culture --coag negative staph speciesnot lugdunensis. Pansensitive Blood cultures negative ESR: 50, CRP: 21.2 (will need these trended) Seen by infectious diseaserecommending 2 IV Ancef (since TTE showing no obvious endocarditis) followed by 2 weeks of oral Keflex -- prior provider had transitioned to Rocephin 2g daily (for convenience). I think this is an appropriate plan if patient were going home; however, she will be going to an SNF and Ancef provides more adequate gram-positive coverage to conclude 06/25 with transition to oral Keflex on 06/26 for an additional 2 weeks Ultrasound-guided line to left upper extremity in place Echo showing no evidence of vegetation Continue pain controlat discretion of primary team Recommend DVT prophylaxis X 14 daysdrug, dose, duration at discretion of primary team PT/OT recommending rehab. Case management working on this Case management looking into [facility]. It is quite possible, the patient will conclude her IV antibiotic therapy while awaiting a bed at SNF. In additi on, she may show improved strength. If this is the case, would consider discharged home at that time. (2) Postoperative anemia: Plan: -Acute on chronic -Preoperative hemoglobin 11.4. Down to 7.7 on 06/15 -Iron level low at 17 -Venofer 300mg IV, given 06/16 & 06/17 -continue FeSO4-- add vitamin C to help with absorption -Exacerbation of chronic anemia is likely postsurgical, frequent lab draws and dilutional (fluid balance +7.18 L). Patient asymptomatic. -Has known hemorrhoids that do not actively seem flared. Up-to-date with upper and lower endoscopy (3) Primary osteoarthritis of right knee: Plan: -now with septic knee (4) Coronary artery disease: Plan: w/ history of NSTEMI -Continue aspirin -continue Simvastatin (intolerant of Atorvastatin) -No ischemic symptoms to date (5) HTN (hypertension): Plan: -Controlled on home regimen of ACEI, BB, Lasix prn. Plan: Currently on Lovenox for DVT ppx which will be continued PT/OT recommending rehab, d/w case management, referrals to be sent, pt agreeable. Case management working on this We will sign off on this patient from a medical standpoint but please do not hesitate to reconsult should a problem arise. Thank you for allowing us to participate in the care of this patient Plan d/w Dr. Florez Admission and Anticipated Discharge Date Admission Date: June 11, 2021 Subjective Patient seen on daily rounds today. Vocalizes no complaints or concerns. Denies fevers, chills, chest pain, shortness breath, abdominal pain, nausea vomiting. Is moving bowel bladder without difficulty. Nursing voices no complaints or concern Pain in the knee adequately controlled. Review of Systems Review of Systems: All systems reviewed and are unremarkable except as noted in HPI and below Denies fevers, chills, headache, nasal congestion, sore throat, cough, chest pain, shortness of breath, palpitations, orthopnea, PND, abdominal pain, nausea, vomiting, diarrhea, constipation, dysuria, hematuria, frequency, back pain, joint pain or swelling, easy bruising or bleeding, skin lesions or rashes. Physical Exam Physical Exam: General: Resting comfortably in her bedside chair. She does not appear ill or toxic. NAD. HEENT: Head is AT/NC. Buccal mucosa is moist and pink Neck: No JVD. Negative hepatojugular reflex Cardiac: RRR with 1/6 [place] Lungs: CTA without W/R/R Abdomen: Normoactive X4. Soft and nontender in all quadrants. Extremities: Armani wrap to right knee. No indwelling drains. Distal pulses to the bilateral lower extremities are intact and symmetrical. Capillary fill +2. Negative Homans' sign. No calf tenderness Neuro: A&O X4. Cranial nerves II through XII are grossly intact. No focal neuro deficits Skin: No obvious skin lesions or rashes Psych: Appropriate affect. Pleasant and cooperative Results & Data Results & Data ([facility]) Vital Signs (Past 12 Hours) Vital Signs Temp Pulse Resp BP Pulse Ox 06/19/21 07:25 36.5 C 81 18 156/76 H 97 PG Care Time/CCT Total # of Minutes Spent Total Time Spent with Patient: Total time spent is greater than 50% in coordination of care (as documented) at patient's floor/unit and/or counseling patient: Coding Level of Care Code 75516 Inpt Consult Level 3 Diagnoses Septic joint of right knee joint M00.9 Postoperative anemia D64.9 Primary osteoarthritis of right knee M17.11 Coronary artery disease I25.10 Coronary Disease-Associated Artery/Lesion type: [place] artery [place] vs. transplanted heart: [place] heart Associated angina: without angina HTN (hypertension) I10 Hypertension type: essential hypertension (1) Coronary artery disease Coronary Disease-Associated Artery/Lesion type: [place] artery [place] vs. transplanted heart: [place] heart Associated angina: without angina Qualified Code(s): I25.10 - Atherosclerotic heart disease of [place] coronary artery without angina pectoris (2) HTN (hypertension) Hypertension type: essential hypertension Qualified Code(s): I10 - Essential (primary) hypertension
[2021-06-19] MEDS: FERROUS SULFATE 325 MG TAB PO SCH (17:17)
[2021-06-19] MEDS: SENNA 8.6 MG TAB PO SCH (20:38)
[2021-06-20] MEDS: ceFAZolin 2000MG 2,000 MG/15 ML SYR IV SCH ×3 (05:22→21:11)
[2021-06-20] MEDS: ACETAMINOPHEN 500 MG TAB PO SCH ×3 (05:22→21:11)
[2021-06-20] MEDS: METOPROLOL SUCC 50MG EXT REL TAB PO SCH (08:29)
[2021-06-20] MEDS: ASPIRIN 81 MG ECTAB PO SCH (08:29)
[2021-06-20] MEDS: CITALOPRAM 40 MG TAB PO SCH (08:29)
[2021-06-20] MEDS: DOCUSATE SODIUM 100 MG CAP PO SCH ×2 (08:29→21:11)
[2021-06-20] MEDS: ENOXAPARIN INJ 40 MG/0.4 ML SYR SQ SCH (08:30)
[2021-06-20] MEDS: lisinopril 20 MG TAB PO SCH (08:30)
[2021-06-20] MEDS: ASCORBIC ACID 500 MG TAB PO SCH (08:30)
[2021-06-20] MEDS: SIMVASTATIN 10 MG TAB PO SCH (08:30)
[2021-06-20] MEDS: CHOLECALCIFEROL 1,000 UNITS 25 MCG TAB PO SCH (08:30)
[2021-06-20] MEDS: CEROVITE ADV FORMULA TAB PO SCH (08:31)
[2021-06-20] MEDS: oxyCODONE HCL IR 5 MG TAB (IMMEDIATE RELEASE) PO PRN (12:23)
--- NOTE | 2021-06-20 14:20 | Progress Notes ---
DATE OF SERVICE: 06/20/2021 She is afebrile. Her vital signs are stable. No problems are reported. She is awaiting placement. She is doing better with physical therapy every day and reports better mobility and less knee pain. She will continue on her intravenous antibiotics. We will continue with DVT prophylaxis and await don zhang. Job ID: [id number]
[2021-06-20] MEDS: SENNA 8.6 MG TAB PO SCH (21:11)
[2021-06-21] MEDS: ceFAZolin 2000MG 2,000 MG/15 ML SYR IV SCH ×3 (05:17→22:46)
[2021-06-21] MEDS: oxyCODONE HCL IR 5 MG TAB (IMMEDIATE RELEASE) PO PRN (05:17)
[2021-06-21] MEDS: ACETAMINOPHEN 500 MG TAB PO SCH ×3 (05:17→22:47)
[2021-06-21] MEDS: DOCUSATE SODIUM 100 MG CAP PO SCH ×2 (08:02→20:21)
[2021-06-21] MEDS: METOPROLOL SUCC 50MG EXT REL TAB PO SCH (08:03)
[2021-06-21] MEDS: CITALOPRAM 40 MG TAB PO SCH (08:03)
[2021-06-21] MEDS: lisinopril 20 MG TAB PO SCH (08:03)
[2021-06-21] MEDS: CHOLECALCIFEROL 1,000 UNITS 25 MCG TAB PO SCH (08:03)
[2021-06-21] MEDS: CEROVITE ADV FORMULA TAB PO SCH (08:03)
[2021-06-21] MEDS: ASPIRIN 81 MG ECTAB PO SCH (08:03)
[2021-06-21] MEDS: SIMVASTATIN 10 MG TAB PO SCH (08:04)
[2021-06-21] MEDS: ASCORBIC ACID 500 MG TAB PO SCH (08:04)
[2021-06-21] MEDS: ENOXAPARIN INJ 40 MG/0.4 ML SYR SQ SCH (08:04)
--- NOTE | 2021-06-21 15:52 | Orthopedic Progress Note ---
Date of Service June 21, 2021 Assessment & Plan (1) Septic joint of right knee joint: Plan: Postop day 10-status post irrigation, debridement of her right knee arthroscopically. Continue physical therapy and Occupational Therapy-we will allow for full range of motion as tolerated to her right lower extremity. She can be weight-bear as tolerated and discontinue the knee immobilizer. Recommend use of walker to assist with ambulation. Lovenox for DVT prophylaxis along with JAY stockings and SCDs. Tylenol or oxycodone or tramadol as needed for pain. Ice to right knee as needed for pain and swelling. Appreciate medical assistance for management of chronic medical problems. She was seen by ID today, midline in placed, tolerating IV antibiotics. Case management working on SNF placement - currently no beds available. Patient understands and agrees with the plan. Will continue to follow, findings discussed with Dr. Gr. Will re-eval tomorrow and ready for discharge when bed available at SNF. Admission and Anticipated Discharge Date Admission Date: June 11, 2021 Subjective Patient is doing well today. States that she walked 170 feet today and sat in a chair for 3-1/2 hours. Her daughter is at her bedside. She states her knee is more sore today than it had been. She denies any fevers or chills. She is eating a regular diet although she does not have much appetite. Denies any nausea or vomiting. She is currently laying in bed with ice on her knee. Physical Exam Musculoskeletal: Exam of her right knee: She is unable to independently straight leg raise with her leg in the extended position. She states that she can straighten it when she is in a seated position. She is able to do dorsiflexion and plantarflexion of her ankle and strength is normal. Distal pulses are 2+. No significant distal edema. A Jay stocking is in place. A trace effusion to her right knee. Her incisions are clean, dry and intact and covered with Band-Aids. Tolerates logrolling of her right hip. Tolerates passive motion of her right knee and is able to actively flex her knee to about 30 to 40 degrees while in bed today. Results & Data ([facility]) Vital Signs (Past 12 Hours) Vital Signs Temp Pulse Resp BP Pulse Ox 06/21/21 15:30 36.5 C 74 16 159/73 H 99 06/21/21 07:48 36.5 C 72 16 157/76 H 96
[2021-06-21] MEDS: FERROUS SULFATE 325 MG TAB PO SCH (17:17)
[2021-06-21] MEDS: SENNA 8.6 MG TAB PO SCH (20:21)
[2021-06-22] MEDS: ceFAZolin 2000MG 2,000 MG/15 ML SYR IV SCH ×3 (06:03→22:27)
[2021-06-22] MEDS: ACETAMINOPHEN 500 MG TAB PO SCH ×3 (06:03→22:28)
[2021-06-22] MEDS: DOCUSATE SODIUM 100 MG CAP PO SCH ×2 (08:09→19:58)
[2021-06-22] MEDS: ASPIRIN 81 MG ECTAB PO SCH (08:09)
[2021-06-22] MEDS: ENOXAPARIN INJ 40 MG/0.4 ML SYR SQ SCH (08:10)
[2021-06-22] MEDS: CHOLECALCIFEROL 1,000 UNITS 25 MCG TAB PO SCH (08:10)
[2021-06-22] MEDS: CITALOPRAM 40 MG TAB PO SCH (08:10)
[2021-06-22] MEDS: ASCORBIC ACID 500 MG TAB PO SCH (08:10)
[2021-06-22] MEDS: CEROVITE ADV FORMULA TAB PO SCH (08:11)
[2021-06-22] MEDS: SIMVASTATIN 10 MG TAB PO SCH (08:11)
[2021-06-22] MEDS: lisinopril 20 MG TAB PO SCH (08:13)
[2021-06-22] MEDS: METOPROLOL SUCC 50MG EXT REL TAB PO SCH (08:14)
--- NOTE | 2021-06-22 15:33 | Orthopedic Progress Note ---
Date of Service June 22, 2021 Assessment & Plan (1) Septic joint of right knee joint: Plan: Postop day 11-status post irrigation, debridement of her right knee arthroscopically. Continue physical therapy and Occupational Therapy-we will allow for full range of motion as tolerated to her right lower extremity. She can be weight-bear as tolerated and discontinue the knee immobilizer. Recommend use of walker to assist with ambulation. Lovenox for DVT prophylaxis along with BRITTANIE stockings and SCDs. Tylenol or oxycodone or tramadol as needed for pain. Ice to right knee as needed for pain and swelling. Appreciate medical assistance for management of chronic medical problems. She was seen by ID today, midline in placed, tolerating IV antibiotics. Case management working on SNF placement - currently no beds available. Patient understands and agrees with the plan. Dr. Gr present for today's visit. Awaiting bed at SNF, most likely discharge to [facility] tomorrow. Admission and Anticipated Discharge Date Admission Date: June 11, 2021 Subjective Patient is doing well today. She is starting to crave food. She is anxious to get out of the hospital. She states that her knee feels better today. She's been out of bed walking and sitting in the chair. Physical Exam 2 Musculoskeletal: Knee without erythema and warmth. Mild stiffness. Incisions clean, dry and intact. Sutures retained, band-aids changed. No distal edema, d istal N/V intact. Results & Data ([facility]) Vital Signs (Past 12 Hours) Vital Signs Temp Pulse Resp BP Pulse Ox 06/22/21 14:49 36.8 C 78 16 133/70 96 06/22/21 07:22 36.7 C 78 16 157/78 H 95
[2021-06-22] MEDS: SENNA 8.6 MG TAB PO SCH (19:59)
[2021-06-23] MEDS: ACETAMINOPHEN 500 MG TAB PO SCH (05:13)
[2021-06-23] MEDS: ceFAZolin 2000MG 2,000 MG/15 ML SYR IV SCH ×2 (05:13→13:05)
[2021-06-23] MEDS: ASPIRIN 81 MG ECTAB PO SCH (08:31)
[2021-06-23] MEDS: CITALOPRAM 40 MG TAB PO SCH (08:32)
[2021-06-23] MEDS: CHOLECALCIFEROL 1,000 UNITS 25 MCG TAB PO SCH (08:32)
[2021-06-23] MEDS: ASCORBIC ACID 500 MG TAB PO SCH (08:32)
[2021-06-23] MEDS: CEROVITE ADV FORMULA TAB PO SCH (08:33)
[2021-06-23] MEDS: SIMVASTATIN 10 MG TAB PO SCH (08:33)
[2021-06-23] MEDS: DOCUSATE SODIUM 100 MG CAP PO SCH (08:33)
[2021-06-23] MEDS: lisinopril 20 MG TAB PO SCH (08:34)
[2021-06-23] MEDS: METOPROLOL SUCC 50MG EXT REL TAB PO SCH (08:35)
[2021-06-23] MEDS: ENOXAPARIN INJ 40 MG/0.4 ML SYR SQ SCH (10:37)
--- NOTE | 2021-06-23 12:15 | Progress Notes ---
DATE OF SERVICE: 06/23/2021 She is resting comfortably in her chair. She is anxious to leave. She has been approved for [facility]. She will follow up with me on Monday. Discharge to [facility] with her IV Rocephin until and then oral Keflex thereafter. She will need PT and OT. She can weight bear as tolerated and r janis of motion as tolerated. Lovenox for DVT prophylaxis. Job ID: [id number]
--- NOTE | 2021-06-25 10:01 | Discharge Summary ---
Date of Service June 25, 2021 Discharge Data Consultations 06/11/21 19:49 Consult Hospitalist Routine 06/14/21 12:33 Consult Infectious Diseases Routine Procedures Performed Operation Date: 06/11/21 15:55 Actual Procedures p Right Knee Arthroscopy with Arthroscopic Irrigation and Debridement(Right) - Osman Gr MD Hospital Course (1) Septic joint of right knee joint: Patient was admitted to [facility] on 06/11/21 directly from our office for a septic right knee joint. She underwent an right knee arthroscopic irrigation and debridement. She tolerated the procedure well. Procedure was performed with general anesthesia. She was placed on IV vancomycin and then switched to IV Ancef. She was followed by the hospitalist service during her inpatient stay for medical management. She was allowed out of bed, weight-bear as tolerated right lower extremity with the assistance of a walker. Postoperative surgical dressings were left on for 2 days and on postop day 2 her dressings were changed. Her knee pain improved during her inpatient stay. She was given a regular diet. Her home medications were continued. Her vital signs remained stable. Her pain was controlled with Tylenol, tramadol, oxycodone. Physical therapy and Occupational Therapy consults were placed. She was seen by them on a daily basis. An ID consultation was placed on June 14 and she was seen on June 15. They recommended an echocardiogram to rule out any valve vegetation, And IV Rocephin. Her Ancef was changed to IV Rocephin for 3 days. This was performed on June 16 and it was negative. Due to those findings, they recommended 2 weeks of IV Ancef thru a midline and then 2 weeks of p.o. Keflex. Midline was placed. The Rocephin was discontinued. Daily she progressed in physical therapy with the ability to do more walking comfortably. She continued to use a walker during her inpatient stay.Case management was involved for disposition. She did hope to go to [facility] but no beds were available, then referral was made to the [facility] [address] and no beds were available, then referral was placed to [facility] and no beds were available, they checked again with [facility] and no beds were available. On June 23 a bed became available at [facility] and she was discharged to [facility] in stable condition. Her daughter transported her. Discharge instructions were provided. She will follow-up with Dr. Gr as scheduled on June 28, 2021. IV antibiotics were continued which was Ancef 2 g every 8 hours. Last dose of Ancef be completed on June 25. She then can transition to p.o. Keflex 500 mg 4 times a day for another 2 weeks. Once the Ancef is completed the midline can be discontinued. At the time of discharge her incisions were clean, dry and intact with retained sutures, her knee was benign with no significant effusion. She did have some weakness with straight leg raising and soreness with range of motion but that continue to improve on a daily basis. All questions were answered.
--- NOTE | 2021-06-28 09:37 | Coding Query ---
ANEMIA To promote full compliance with coding requirements relating to patient care, physician participation is requested in all cases of discharge door operator uncertainty. Please assist us with the question(s) below: Coding Question(s): The record reflects the following clinical findings:06/18 Hospitalist prog note: exacerbation of chronic anemia, likely postsurgical due to frequent lab draws, dilutional . Fluid balance pos 7.18. 06/19 Prog note - Preop hgb 11.4 , fell to 7.7. Iron level down at 17 . Venofer IV given 06/16 . Please check below the type of anemia that was treated. Thanks for your help! Zhen Sifuentes, [employer] If these findings are indicative of anemia, please specify the known or suspected type by placing an "X" within the parenthesis (x). If other, please document type. Examples are: ( ) Acute blood loss anemia (x ) Acute Postoperative blood loss anemia ( ) Acute postoperative anemia due to dilutional fluids ( ) Chronic blood loss anemia ( ) Anemia of chronic disease ( ) Aplastic anemia ( ) Anemia due to renal disease ( ) Anemia in neoplastic disease ( ) Iron deficient anemia ( ) Anemia, unspecified or other ( ) Other: (please specify) ( ) Unable to determine MTDD
== END 2021-06-23 13:45 | DRG 501 ==
LOC: ASU 15:39 → 3E 18:24